=== PATIENT | female | born 1940 | race Caucasian/White ===

== ENCOUNTER 2021-04-08 13:44 | Outpatient (REF) | payer MEDICARE, OTHER, SELFPAY ==
--- NOTE | ~2021-04-08 | MM_ITS ---
EXAMINATION: MM SCREENING DIGITAL BREAST TOMOSYNTHESIS, BILATERAL CLINICAL INFORMATION: Screening. Asymptomatic. The lifetime risk of breast cancer based on the Tyrer-Cuzick Model is under 2%. COMPARISON: Mammography: 07/30/2019, 07/29/2018, 07/26/2017, 07/23/2016 TECHNIQUE: Digital breast tomosynthesis is performed in both the craniocaudal and mediolateral oblique views along with computer-aided detection (CAD). Synthesized 2D images are generated from the tomosynthesis. FINDINGS: There are scattered areas of fibroglandular density (ACR BI-RADS breast composition Category b). There are no significant masses, abnormal calcifications, or other abnormalities. There are scattered minor asymmetries similar to prior studies. No developing density. No significant changes. The axilla and skin contours are unremarkable. MM/MM tomosynthesis screening BI IMPRESSION: No mammographic evidence of malignancy. ASSESSMENT: BI-RADS 2: Benign RECOMMENDATION: Routine annual mammography screening. This patient's information was entered into a reminder system with a target due date for their next mammogram.
== END 2021-04-08 13:45 | disposition home or self-care (01) ==
LOC: HO.MAMMO 13:44
PROVIDERS: PCP Internal Medicine; Visit Provider Internal Medicine
DX: Z12.31 Encounter for screening mammogram for malignant neoplasm of breast (principal)
CPT/HCPCS: 77063; 77067

== ENCOUNTER 2022-04-12 10:26 | Outpatient (REF) | payer MEDICARE, OTHER, SELFPAY ==
--- NOTE | ~2022-04-12 | MM_ITS ---
EXAMINATION: MM SCREENING DIGITAL BREAST TOMOSYNTHESIS, BILATERAL CLINICAL INFORMATION: Screening. Asymptomatic. The lifetime risk of breast cancer based on the Tyrer-Cuzick Model is 1%. COMPARISON: Mammography: 04/08/2021, 07/30/2019, 07/29/2018 TECHNIQUE: Digital breast tomosynthesis is performed in both the craniocaudal and mediolateral oblique views along with computer-aided detection (CAD). Synthesized 2D images are generated from the tomosynthesis. FINDINGS: There are scattered areas of fibroglandular density (ACR BI-RADS breast composition Category b). Parenchymal pattern is similar to prior studies. There is no interval mass or architectural abnormality or developing density. No abnormal calcifications. Again, there are dermal lesions overlying the anterior upper left breast and anterior upper right breast. MM/MM tomosynthesis screening BI IMPRESSION: No mammographic evidence of malignancy. ASSESSMENT: BI-RADS 2: Benign RECOMMENDATION: Routine annual mammography screening. This patient's information was entered into a reminder system with a target due date for their next mammogram.
== END 2022-04-12 10:27 | disposition home or self-care (01) ==
LOC: HO.MAMMO 10:26
PROVIDERS: PCP Internal Medicine; Visit Provider Internal Medicine
DX: Z12.31 Encounter for screening mammogram for malignant neoplasm of breast (principal)
CPT/HCPCS: 77063; 77067

== ENCOUNTER 2023-04-26 14:21 | Outpatient (REF) | payer MEDICARE, OTHER, SELFPAY ==
--- NOTE | ~2023-04-26 | MM_ITS ---
EXAMINATION: MM SCREENING DIGITAL BREAST TOMOSYNTHESIS, BILATERAL CLINICAL INFORMATION: Screening. Asymptomatic. The lifetime risk of breast cancer based on the Tyrer-Cuzick Model is 0.8%. COMPARISON: Mammography: This study is compared with prior exams dating back to 2019. TECHNIQUE: Digital breast tomosynthesis is performed in both the craniocaudal and mediolateral oblique views along with computer-aided detection (CAD). Synthesized 2D images are generated from the tomosynthesis. FINDINGS: There are scattered areas of fibroglandular density (ACR BI-RADS breast composition Category b). There are no significant masses, abnormal calcifications, or other abnormalities. MM/MM tomosynthesis screening BI IMPRESSION: No mammographic evidence of malignancy. ASSESSMENT: BI-RADS BI-RADS 1 - Negative RECOMMENDATION: Routine annual mammography screening. 1 year F/U This examination should not preclude the clinical evaluation of a suspicious palpable abnormality. This patient's information was entered into a reminder system with a target due date for their next mammogram.
== END 2023-04-26 14:22 | disposition home or self-care (01) ==
LOC: HO.MAMMO 14:21
PROVIDERS: PCP Internal Medicine; Visit Provider Internal Medicine
DX: Z12.31 Encounter for screening mammogram for malignant neoplasm of breast (principal)
CPT/HCPCS: 77063; 77067

== ENCOUNTER → 2023-04-26 15:15 | Outpatient (BNV) | payer MEDICARE, OTHER, SELFPAY | PROVIDERS: PCP Internal Medicine; Visit Provider Radiology Diagnostic Radiology | DX: Z12.31 Encounter for screening mammogram for malignant neoplasm of breast (principal) | CPT/HCPCS: 77063; 77067 ==

== ENCOUNTER 2024-05-01 14:31 | Outpatient (REF) | payer MEDICARE, OTHER, SELFPAY | END 2024-05-01 14:32 | disposition home or self-care (01) | LOC: HO.MAMMO 14:31 | PROVIDERS: PCP Internal Medicine; Visit Provider Internal Medicine | DX: Z12.31 Encounter for screening mammogram for malignant neoplasm of breast (principal) | CPT/HCPCS: 77063; 77067 ==

== ENCOUNTER → 2024-05-01 15:00 | Outpatient (BNV) | payer MEDICARE, OTHER, SELFPAY | PROVIDERS: PCP Internal Medicine; Visit Provider Radiology Diagnostic Radiology | DX: Z12.31 Encounter for screening mammogram for malignant neoplasm of breast (principal) | CPT/HCPCS: 77063; 77067 ==

== ENCOUNTER 2024-06-15 14:05 | Inpatient (IN) | payer MEDICARE, OTHER, SELFPAY ==
--- NOTE | ~2024-06-15 | XR_ITS ---
EXAMINATION: XR HIP, LEFT CLINICAL INFORMATION: Left groin pain status post fall. COMPARISON: None available. TECHNIQUE: 3 radiographs of the left hip. FINDINGS: There is no fracture or dislocation. There are degenerative changes of the hips bilaterally. Sacroiliac joints and symphysis pubis are intact. Regional soft tissues are normal in appearance. XR/XR hip LT w PEL1V IMPRESSION: No fracture or dislocation. Degenerative changes of the hips bilaterally. Electronically signed by: Jesu Lord DO 06/15/2024 03:44 PM EDT
--- NOTE | ~2024-06-15 | FL_ITS ---
EXAMINATION: FLUOROSCOPY GUIDANCE FOR NEEDLE PLACEMENT CLINICAL INFORMATION: Left hip nail COMPARISON: None available. TECHNIQUE: Fluoroscopy in the OR FINDINGS: Fluoroscopy during left femoral fracture fixation FLUOROSCOPY TIME: 0.7 minutes DOSE AREA PRODUCT: 0.229 mGy-m2 (milligray-meter squared) FL/FL guidance in OR IMPRESSION: Fluoroscopy performed by the orthopedic Department. Please see operative report for additional information. Electronically signed by: Romelia Messina MD 06/16/2024 04:20 PM EDT
--- NOTE | ~2024-06-15 | CT_ITS ---
EXAMINATION: CT HEAD WITHOUT IV CONTRAST, CT CERVICAL SPINE WITHOUT IV CONTRAST INDICATION INFORMATION: injury, pain COMPARISON: None TECHNIQUE: Separate noncontrast CT examinations of the head and cervical spine were performed. Coronal and sagittal images were created for each examination at the technologist workstation. This CT examination was performed using dose optimization techniques as appropriate, variously including the following: *Automated exposure control *Adjustment of mA and/or kV according to patient size (this includes techniques or standardized protocols for targeted exams where dose is matched to indication/reason for exam; i.e. extremities or head) *Use of iterative reconstruction technique DLP: 761 mGy-cm FINDINGS: Head: Postsurgical changes from right-sided craniotomy with cystic encephalomalacia and peripheral calcification in posterior right temporal and occipital lobes. Mild dural thickening deep to the craniotomy is noted. No discrete extra-axial collection or hemorrhage. No acute osseous or soft tissue abnormality. The mastoid air cells and visualized portions of the paranasal sinuses are well aerated. There is no evidence of acute intracranial hemorrhage or territorial infarction. No abnormal mass effect or midline shift is seen. Simmons to white matter differentiation is well preserved. No extra-axial fluid collections are identified. There is no evidence of acute hydrocephalus. There is ex vacuo dilatation of the atrium and temporal horn of the right lateral ventricle. There is patchy hypodensity in the periventricular and deep white matter of the right greater than left cerebral hemisphere which may reflect sequela of chronic microvascular ischemia or treatment-related changes. Cervical spine: There is no evidence of acute cervical spine fracture. Vertebral bodies remain normal in height. Alignment is maintained. Mild to moderate multilevel cervical spondylosis. No pre- or paravertebral soft tissue abnormality is identified. Visualized portions of the lung apices are unremarkable. The thyroid gland is unremarkable. CT/CT cervical spine wo IV con IMPRESSION: 1. No acute intracranial abnormality. 2. Postsurgical changes in the posterior right temporal and occipital lobes status post craniotomy which is incompletely assessed in the absence of prior comparison imaging. 3. No cervical spine fracture or traumatic malalignment. Electronically signed by: Tato Florence MD 06/15/2024 09:41 PM EDT
--- NOTE | ~2024-06-15 | CT_ITS ---
EXAMINATION: CT HIP WITHOUT CONTRAST, LEFT CLINICAL INFORMATION: Fall. Pain. COMPARISON: Left hip June 15, 2024 TECHNIQUE: Multidetector volumetric imaging was obtained through the left hip without contrast material. Multiplanar reformatted images were submitted in coronal and sagittal planes. This CT examination was performed using dose optimization techniques as appropriate, variously including the following: *Automated exposure control *Adjustment of mA and/or kV according to patient size (this includes techniques or standardized protocols for targeted exams where dose is matched to indication/reason for exam; i.e. extremities or head) *Use of iterative reconstruction technique DLP: 173 mGy-cm FINDINGS: There is a comminuted displaced intratrochanteric fracture of the left hip. There is angulation of the fracture. Femoral head remains seated in the acetabulum. No fracture of the acetabulum, left hemipelvis. Marked diverticulosis of the sigmoid colon without acute change of the bowel. Bladder is unremarkable. CT/CT hip LT wo IV con IMPRESSION: Comminuted displaced intratrochanteric fracture of the left hip. Electronically signed by: Steven Grider MD 06/15/2024 09:19 PM EDT
--- NOTE | 2024-06-15 14:08 | ED_ITS ---
HPI - Fall General Chief Complaint: Extremity Injury, Lower Stated Complaint: L HIP PAIN Time Seen by Provider: 06/15/24 14:25 Source: patient and EMS Mode of arrival: EMS Limitations: no limitations History of Present Illness HPI Narrative: Patient is an 83-year-old female with past medical history of paroxysmal atrial fibrillation on amiodarone without reported anticoagulants, bladder cancer, brain tumors who presents to the emergency department for evaluation of left groin pain traumatic in nature. Reports that she was golfing today, while attempting to drive a ball she felt a sudden pop to the left hip, lost her balance falling down and landing on her buttock. She denies any head strike or loss of consciousness. Has no reports of headache dizziness lightheadedness vision changes, neck pain. She is endorsing pain to the left groin after the fall. Was unable to stand unassisted or bear weight. Has severe pain with any movement to the leg. No numbness tingling or cold sensation to the leg. She denies any preceding pain to the left groin. Related Data Allergies Allergy/AdvReac Type Severity Reaction Status Date / Time No Known Allergies Allergy Mild Unverified 06/15/24 14:23 Review of Systems 2 Review of Systems: Yes all other systems are reviewed and are negative [facility] Past Medical History Attestation statement: The following information was validated with the patient. Source: old records reviewed Social History Social History Smoked in Last 30 Days: No Use of substances other than those prescribed or required for medical reasons: No Advance Directives: Yes Advance Directives Information Provided: Yes Advance Directives on File: No Do you have a plan to hurt others: No Plan Physical Exam 2 Vital Signs: Vital Signs: Last Vital Signs Temp 98.3 F 06/15/24 19:27 Pulse 58 06/15/24 19:27 Resp 15 06/15/24 19:27 BP 128/56 L 06/15/24 19:27 Pulse Ox 99 06/15/24 19:27 O2 Del Method Room Air 06/15/24 19:27 BMI result Body Mass Index 18.8 Appearance: Alert.?Oriented to person, place and time. No acute distress.?Normal affect. Head: Normocephalic, atraumatic Eyes: Pupils equal, round and reactive to light.? ENT: Pharynx normal.?? Neck: Normal inspection.? Neck supple.??No midline cervical spine tenderness, step-offs, deformities CVS: Heart sounds normal. Normal heart rate and rhythm.? Pulses normal.?? Respiratory: No respiratory distress.? Lung sounds clear to auscultation bilaterally?? Abdomen: Soft and non-tender. Normoactive bowel sounds. Skin: Skin warm and dry.? Normal skin color.? Extremities: No lower extremity edema.? No calf ttp. No pain upon palpation to the lateral hip. Pain upon palpation of the left groin, no palpable masses or lumps. 2+ DP/PT pulse. No shortening. No rotation. ? Neuro: Moves all extremities spontaneously. Sensation intact bilaterally. CN II- XII intact. No focal neuro deficits. Course Reevaluation(s) Reevaluation #1: XR without evidence of acute fracture to the left hip/pelvis, degenerative changes are present. She is unable to move the leg without extreme pain, unable to ambulate, given age, plan to obtain CT to exclude occult fracture. Patient signed out to Rodo ANDERSON pending imaging and re-evaluation Time: 16:17 Reevaluation #2: Patient's left hip CT is still pending but upon my review, it is obviously broken. I consulted with the orthopedic team who agrees and recommends medical admission, NPO after midnight for possible surgery tomorrow. I spoke to the hospitalist team who agreed to admission. Time: 20:50 Medications Administered Discontinued Medications Generic Name Dose Route Start Last Admin Trade Name Rocq PRN Reason Stop Dose Admin Acetaminophen 975 mg 06/15/24 15:25 06/15/24 15:31 Acetaminophen 325 Mg Tablet PO 06/15/24 15:26 975 mg ONCE ONE Administration Morphine Sulfate 2 mg 06/15/24 17:53 06/15/24 18:05 Morphine Sulfate 2 Mg/Ml Cartridge IVPUSH 06/15/24 17:54 2 mg ONCE ONE Administration Protocol Morphine Sulfate 2 mg 06/15/24 19:53 06/15/24 20:04 Morphine Sulfate 2 Mg/Ml Cartridge IVPUSH 06/15/24 19:54 2 mg ONCE ONE Administration Protocol Ondansetron HCl 4 mg 06/15/24 17:53 06/15/24 18:05 Ondansetron Hcl 4 Mg/2 Ml Vial IVPUSH 06/15/24 17:54 4 mg ONCE ONE Administration Medical Decision Making Medical Decision Making MDM Narrative: Patient is an 83-year-old female with past medical history of atrial fibrillation not on anticoagulants, bladder cancer, brain cancer who presents emergency department for evaluation after a Mechanical fall landing on her buttock without head strike or loss of consciousness. Fall was witnessed of the affirm. No anticoagulants. No focal neurological deficits. Suspect less likely to have acute intracranial pathology, fracture subluxation. XR of the left hip and pelvis be obtained to evaluate for fracture versus strain of the groin. Extremity is neurovascularly intact distally. Declines analgesic at this time Differential Diagnosis Differential Diagnoses: The differential diagnosis associated with the presentation includes (See narrative above) Admission/Observation Consideration of admission/observation: Escalation of care including admission/observation considered Lab Data 06/15/24 16:36 06/15/24 16:36 Labs: Lab Results 06/15/24 Range/Units 16:36 WBC 8.0 (4.8-10.8) X10*3/uL RBC 3.40 L (4.20-5.50) X10*6/uL Hgb 11.0 L (12.0-16.0) g/dl Hct 32.7 L (37.0-47.0) % MCV 96.2 (80.0-98.0) fL MCH 32.4 (27.0-33.0) pg MCHC 33.6 (31.0-35.0) g/dl RDW 14.1 (11.0-16.0) % Plt Count 160 (160-400) X10*3/uL MPV 8.8 L (9.4-12.3) fL Immature Gran % (Auto) 0.5 H (0.0-0.4) % Neut % (Auto) 85.3 H (45-73) % Lymph % (Auto) 7.1 L (20-40) % Carver % (Auto) 5.6 (2-11) % Eos % (Auto) 1.1 (0-4) % Baso % (Auto) 0.4 (0-2) % Lymph # (Auto) 0.6 L (1.2-4.9) X10*3/uL Carver # (Auto) 0.5 (0.1-1.2) X10*3/uL Eos # (Auto) 0.1 (0.0-0.4) X10*3/uL Baso # (Auto) 0.0 (0.0-0.2) X10*3/uL Abs Immat Gran (auto) 0.04 H (0.00-0.03) X10*3/uL Absolute Neuts (auto) 6.8 (2.0-8.3) x10*3/uL Absolute Nucleated RBC 0.000 (0.0-0.012) X10*3/uL Nucleated RBC % (auto) 0.0 (0.0-0.2) /100WBC Sodium 141 (135-145) mmol/L Potassium 3.8 (3.3-5.1) mmol/L Chloride 112 H (96-108) mmol/L Carbon Dioxide 21 L (22-29) mmol/L Anion Gap 12 (12-20) BUN 20 H (9-16) mg/dL Creatinine 0.91 (0.5-1.4) mg/dL Estim Creat Clear Calc 39.2 Estimated GFR 59 Random Glucose 118 H (60-115) mg/dL Calcium 9.3 (8.4-10.2) mg/dL Total Bilirubin 0.4 (0.0-1.0) mg/dL AST 19 (5-31) U/L ALT 17 (0-31) U/L Alkaline Phosphatase 54 (39-117) U/L Total Protein 6.2 L (6.5-8.0) g/dL Albumin 3.6 (3.5-5.0) g/dL Independent Interpretation I performed an independent interpretation of an: Plain X-Ray (No acute fracture of the left hip) Radiology Impression Discussion of test interpretation with radiology: I have reviewed the radiologist's reading. Radiologist Impression: XR/XR hip LT w PEL1V IMPRESSION: No fracture or dislocation. Degenerative changes of the hips bilaterally. Independent Historian Clinical information obtained from an independent historian. History obtained from or confirmed by: EMS Tests considered The following testing was considered but not selected: Head CT, see narrative above Prescription Management I considered prescription management with: Pain Medication Discharge Plan Discharge Clinical Impression: Closed hip fracture Patient Disposition: Admitted As Inpatient Print Language: Latvian
[2024-06-15 14:17] VITALS: BP 140/64; BP 154/60; PULSE 60; PULSE 62; RESP 16; TEMP 36.6; O2SAT 97; O2SAT 98; BMI 18.8
[2024-06-15] MEDS: Acetaminophen 325 MG TABLET 975 MG PO (15:31)
[2024-06-15 16:39] LABS: MANUAL DIFF FLAG NO
[2024-06-15 16:55] LABS: Basophils Percent Auto 0.4 % (0-2); Eosinophils Absolute Auto 0.1 X10*3/uL (0.0-0.4); Eosinophils Percent Auto 1.1 % (0-4); Hematocrit 32.7 % (37.0-47.0); Imm Gran Abs Auto 0.04 X10*3/uL (0.00-0.03); Imm Gran Pct Auto 0.5 % (0.0-0.4); Lymphocytes Absolute Auto 0.6 X10*3/uL (1.2-4.9); Lymphocytes Percent Auto 7.1 % (20-40); Mean Corpuscular HGB Conc 33.6 g/dl (31.0-35.0); Mean Corpuscular Hemoglobin 32.4 pg (27.0-33.0); Mean Corpuscular Volume 96.2 fL (80.0-98.0); Mean Platelet Volume 8.8 fL (9.4-12.3); Monocytes Absolute Auto 0.5 X10*3/uL (0.1-1.2); Monocytes Percent Auto 5.6 % (2-11); Neutrophils Absolute Auto 6.8 x10*3/uL (2.0-8.3); Neutrophils Percent Auto 85.3 % (45-73); Platelet Count 160 X10*3/uL (160-400); Red Cell Distribution Width 14.1 % (11.0-16.0)
[2024-06-15 17:03] LABS: Alanine Aminotransferase 17 U/L (0-31); Albumin Level 3.6 g/dL (3.5-5.0); Alkaline Phosphatase 54 U/L (39-117); Anion Gap 12 (12-20); Aspartate Amino Transferase 19 U/L (5-31); Bilirubin Total 0.4 mg/dL (0.0-1.0); Blood Urea Nitrogen 20 mg/dL (9-16); Calcium 9.3 mg/dL (8.4-10.2); Carbon Dioxide 21 mmol/L (22-29); Chloride 112 mmol/L (96-108); Creatinine Clr Calc Pharmacy 39.2; Estimated Glomerular Filt Rate 59; Glucose Random 118 mg/dL (60-115); Potassium 3.8 mmol/L (3.3-5.1); Sodium 141 mmol/L (135-145); Total Protein 6.2 g/dL (6.5-8.0)
[2024-06-15] MEDS: Morphine Sulfate 2 MG/ML CARTRIDGE IVPUSH ×2 (18:05→20:04)
[2024-06-15] MEDS: ondansetron HCL 4 MG/2 ML VIAL IVPUSH (18:05)
[2024-06-15 19:27] VITALS: BP 128/56; PULSE 58; RESP 15; TEMP 36.8; O2SAT 99
--- NOTE | 2024-06-15 20:54 | PM.EVENT ---
Event Note Date of Service: 06/15/24 Event Note: Left intertrochanteric fx on CT scan -NPO -plan for operative fixation tomorrow morning Time Spent With Patient Time: Total time managing care of this patient today ____ minutes.
--- NOTE | 2024-06-15 21:23 | P.HPHOSP_ITS ---
History of Present Illness Date of Service: 06/15/24 Chief Complaint: Fall This is a 83-year-old female with pertinent history of brain tumor diagnosed 2 years ago status post surgery and radiation, currently on chemotherapy, paroxysmal atrial fibrillation not on anticoagulation who presents to the emergency department for evaluation after a fall. Patient states that during golf she missed her swing, spun around 360 and fell on her left hip. Has been having pain with movement of the left lower extremity since the fall. She is currently on chemotherapy for her brain tumor. No dizziness or lightheadedness prior to the fall. No chest pain or palpitations prior to the fall. No rhythmic jerking movement of extremities. No fever, chills, abdominal pain, changes in urinary or bowel habits. In the emergency department, imaging with comminuted displaced intertrochanteric fracture of the left hip. Review of Systems 2 Constitutional: Constitutional: Reports no additional constitutional complaints Cardiovascular: Cardiovascular: Reports no additional cardiovascular complaints Respiratory: Respiratory: Reports no additional respiratory complaints Gastrointestinal: Gastrointestinal: Reports no additional gastrointestinal complaints Genitourinary: Genitourinary: Reports no additional female genitourinary complaints Musculoskeletal: Musculoskeletal: Reports arthralgias and Reports joint swelling [facility] Medical History Paroxysmal atrial fibrillation Brain tumor Pertinent family history: Not significant due to age Social History Smoked in Last 30 Days: No Use of substances other than those prescribed or required for medical reasons: No Advance Directives: Yes Advance Directives Information Provided: Yes Advance Directives on File: No Do you have a plan to hurt others: No Plan Meds Allergies Allergy/AdvReac Type Severity Reaction Status Date / Time No Known Allergies Allergy Mild Unverified 06/15/24 14:23 Active Medications: Current Medications Cefazolin Sodium/Dextrose (Ancef) 2 gm in 50 mls @ 100 mls/hr IV PREOP ONE Stop: 06/16/24 08:29 Home Medications ?Medication ?Instructions ?Recorded ?Confirmed ?Last Taken ?Type amiodarone 100 mg tablet 50 mg PO DAILY 06/15/24 Unknown History Physical Exam 2 Vital Signs and Narrative: Vital Signs: Last Vital Signs Temp 98.3 F 06/15/24 19:27 Pulse 58 06/15/24 19:27 Resp 15 06/15/24 19:27 BP 128/56 L 06/15/24 19:27 Pulse Ox 99 06/15/24 19:27 O2 Del Method Room Air 06/15/24 19:27 BMI result Body Mass Index 18.8 Elderly female lying in bed in no distress Neck supple, no JVD Regular rate and rhythm, S1-S2 heard Regular breath sounds bilaterally, no wheezing or crackles appreciated Abdomen soft nontender, no guarding, no rigidity Patient is awake, alert and oriented to self, place, time and person ; no focal motor deficit Psych: Normal mood Limited left lower extremity movement due to pain Results Labs 06/15/24 16:36 06/15/24 16:36 Labs: Laboratory Results - last 24 hr 06/15/24 16:36 MCV 96.2 MCH 32.4 MCHC 33.6 RDW 14.1 Plt Count 160 MPV 8.8 L Immature Gran % (Auto) 0.5 H Neut % (Auto) 85.3 H Lymph % (Auto) 7.1 L Gilliam % (Auto) 5.6 Eos % (Auto) 1.1 Baso % (Auto) 0.4 Lymph # (Auto) 0.6 L Gilliam # (Auto) 0.5 Eos # (Auto) 0.1 Baso # (Auto) 0.0 Abs Immat Gran (auto) 0.04 H Absolute Neuts (auto) 6.8 Absolute Nucleated RBC 0.000 Nucleated RBC % (auto) 0.0 Anion Gap 12 Estim Creat Clear Calc 39.2 Estimated GFR 59 Random Glucose 118 H Calcium 9.3 Total Bilirubin 0.4 AST 19 ALT 17 Alkaline Phosphatase 54 Total Protein 6.2 L Albumin 3.6 Imaging Radiologist's Impressions: Impressions Hip/Pelvis X-Ray 06/15/24 14:15 IMPRESSION: No fracture or dislocation. Degenerative changes of the hips bilaterally. Electronically signed by: Jesu Lord DO 06/15/2024 03:44 PM EDT RP Hip CT 06/15/24 17:25 IMPRESSION: Comminuted displaced intratrochanteric fracture of the left hip. Electronically signed by: Steven Grider MD 06/15/2024 09:19 PM EDT RP Assessment and Plan (1) Closed hip fracture: Status: Acute Plan This is a 83-year-old female with pertinent history of brain tumor diagnosed 2 years ago status post surgery and radiation, currently on chemotherapy, paroxysmal atrial fibrillation not on anticoagulation who presents to the emergency department for evaluation after a fall. #. Left intertrochanteric fracture due to mechanical fall: Will admit patient with IV opioids p.r.n. for analgesia. Consulting orthopedic surgery, appreciate assistance. Will keep patient NPO. #. Preoperative risk: RCRI score is 0 #. Brain tumor: On chemotherapy #. Paroxysmal atrial fibrillation: Not on anticoagulation. Rate controlled in the ER. Continue amiodarone Med rec pending DVT prophylaxis: Mechanical DNR/DNI. Discussed with patient at bedside Admit as inpatient and will require two night minimum hospital stay for surgical management of intertrochanteric fracture, IV opiates (as above), which is not possible in a lesser acute setting. Specialist consult pending Quality Stroke Does the patient have a stroke diagnosis?: No VTE Prior VTE?: No VTE Risk Level:: Medical - moderate - high VTE Device Contraindication: N/A - Device Ordered VTE Drug Contraindication: Treatment Not Indicated
[2024-06-15 22:18] VITALS: BP 107/51; PULSE 68; RESP 17; TEMP 36.6; O2SAT 97
--- NOTE | 2024-06-15 22:47 | PC.NURSE ---
purewick placed for patients comfort. will monitor output.
--- NOTE | 2024-06-15 22:52 | PHA.MEDREC ---
Addendum entered by Piero Brian RPh 06/15/24 23:07: MED REC CHECKED BY [facility] Original Note: Pharmacy Consult ? Medication Reconciliation Pharmacy has completed the medication reconciliation. Confirmed medications with patient. Patient brought in Pill Box with Chemo medication in them, Temozolomide 5mg 2@Bedtime and Temozolomide 20mg 3@bedtime. She takes with her chemo meds an Ondansetron 4mg tab. She last took her medication this morning she never took her night medications.
[2024-06-15 23:18] VITALS: BP 137/83; PULSE 68; RESP 18; TEMP 37.1; O2SAT 98
[2024-06-15 23:25] VITALS: BMI 17.8
[2024-06-16] VITALS (10 sets, daily range): BP systolic 101–117; BP diastolic 38–57; PULSE 60–71; RESP 15–20; TEMP 36.2–37.6; O2SAT 92–98
[2024-06-16] MEDS: Morphine Sulfate 4 MG/ML CARTRIDGE IVPUSH (00:02)
[2024-06-16] MEDS: 0.9 % Sodium Chloride Flush 3 ML SYRINGE IVFLUSH ×3 (00:05→20:41)
[2024-06-16 06:30] LABS: MANUAL DIFF FLAG NO
[2024-06-16 06:39] LABS: Basophils Percent Auto 0.2 % (0-2); Eosinophils Absolute Auto 0.1 X10*3/uL (0.0-0.4); Eosinophils Percent Auto 2.3 % (0-4); Hematocrit 32.5 % (37.0-47.0); Hemoglobin 10.7 g/dl (12.0-16.0); Imm Gran Abs Auto 0.02 X10*3/uL (0.00-0.03); Imm Gran Pct Auto 0.4 % (0.0-0.4); Lymphocytes Absolute Auto 0.6 X10*3/uL (1.2-4.9); Lymphocytes Percent Auto 11.7 % (20-40); Mean Corpuscular HGB Conc 32.9 g/dl (31.0-35.0); Mean Corpuscular Hemoglobin 32.1 pg (27.0-33.0); Mean Corpuscular Volume 97.6 fL (80.0-98.0); Mean Platelet Volume 8.9 fL (9.4-12.3); Monocytes Absolute Auto 0.8 X10*3/uL (0.1-1.2); Monocytes Percent Auto 16.1 % (2-11); Neutrophils Absolute Auto 3.3 x10*3/uL (2.0-8.3); Neutrophils Percent Auto 69.3 % (45-73); Platelet Count 157 X10*3/uL (160-400); Red Blood Count 3.33 X10*6/uL (4.20-5.50); Red Cell Distribution Width 14.1 % (11.0-16.0); White Blood Count 4.8 X10*3/uL (4.8-10.8)
[2024-06-16 06:58] LABS: Anion Gap 12 (12-20); Blood Urea Nitrogen 20 mg/dL (9-16); Carbon Dioxide 23 mmol/L (22-29); Chloride 111 mmol/L (96-108); Creatinine Clr Calc Pharmacy 34.8; Estimated Glomerular Filt Rate 55; Glucose Random 106 mg/dL (60-115); Potassium 4.3 mmol/L (3.3-5.1); Sodium 142 mmol/L (135-145)
--- NOTE | 2024-06-16 08:04 | HO.ANESPROP2 ---
HPI - Anesthesia Eval Consult details Narrative: left tumor fracture PMFSH Active Problems Active Problems: All Active Problems Paroxysmal atrial fibrillation (Acute) Brain tumor (Acute) Closed hip fracture (Acute) Past Medical History Medical History Paroxysmal atrial fibrillation Brain tumor Family History Family history of problems with anesthesia: No Surgical History History of Problems with Anesthesia: No Social History Social History Household Members: Children Housing: House Do you presently have visiting nurse or other home services: No Patient Tobacco Use Status: Never used Tobacco Advance Directives Date on File: 06/15/24 Meds Allergies Allergy/AdvReac Type Severity Reaction Status Date / Time No Known Allergies Allergy Mild Unverified 06/15/24 14:23 Active Medications: Current Medications Acetaminophen (Acetaminophen 325 Mg Tablet) 650 mg PO Q6H PRN PRN Reason: Pain, Mild (Pain Scale 1-3), fever or headache Calcium Carbonate (Calcium Carbonate 750 Mg Tab.Chew) 750 mg PO Q4H PRN PRN Reason: Heartburn Cefazolin Sodium/Dextrose (Ancef) 2 gm in 50 mls @ 100 mls/hr IV PREOP ONE Stop: 06/16/24 08:29 Magnesium Hydroxide (Milk Of Magnesia 30 Ml Oral.Susp) 30 ml PO DAILY PRN PRN Reason: Constipation Melatonin (Melatonin 3 Mg Tablet) 6 mg PO BEDTIME PRN PRN Reason: Insomnia Morphine Sulfate (Morphine Sulfate 4 Mg/Ml Cartridge) 4 mg IVPUSH Q4H PRN; Protocol PRN Reason: Pain, Severe (Pain Scale 7-10) Last Admin: 06/16/24 00:02 Dose: 4 mg Pat Own Med ( Temozolomide 5 Mg Capsule) 10 mg PO BEDTIME [facility] Last Admin: 06/15/24 23:18 Dose: 10 mg Pat Own Med ( Temozolomide 20 Mg Capsule) 60 mg PO BEDTIME [facility] Last Admin: 06/15/24 23:19 Dose: 60 mg Ondansetron HCl (Ondansetron Hcl 4 Mg/2 Ml Vial) 4 mg IVPUSH Q8H PRN PRN Reason: Nausea and Vomiting Sodium Chloride (0.9 % Sodium Chloride Flush 3 Ml Syringe) 3 ml IVFLUSH QSHIFT [facility] Last Admin: 06/16/24 00:05 Dose: 3 ml Home Medications ?Medication ?Instructions ?Recorded ?Confirmed ?Last Taken ?Type amiodarone 100 mg tablet 50 mg PO DAILY 06/15/24 06/15/24 06/15/24 07:00 History fkfnikzv-kmeh-[id number] 8 mg-folic 400 1 tab PO DAILY 06/15/24 06/15/24 06/15/24 07:00 History mcg-K 50 mcg-lutein 300 mcg tablet (Centrum Silver Women) ondansetron 4 mg disintegrating 4 mg PO BEDTIME 06/15/24 06/15/24 06/15/24 07:00 History tablet temozolomide 20 mg capsule 60 mg PO BEDTIME 06/15/24 06/15/24 06/14/24 History temozolomide 5 mg capsule 10 mg PO BEDTIME 06/15/24 06/15/24 06/15/24 07:00 History Exam Height,Weight and Vital Signs: Height 5 ft 5 in Weight 48.5 kg Last Vital Signs Temp 99.6 F 06/16/24 07:54 Pulse 60 06/16/24 07:54 Resp 16 06/16/24 07:54 BP 116/57 L 06/16/24 07:54 Pulse Ox 94 06/16/24 07:54 O2 Del Method Room Air 06/16/24 07:54 Pertinent Lab Results Pertinent Lab Results: Laboratory Tests 06/15/24 06/16/24 16:36 05:41 WBC 8.0 4.8 RBC 3.40 L 3.33 L Hgb 11.0 L 10.7 L Hct 32.7 L 32.5 L MCV 96.2 97.6 MCH 32.4 32.1 MCHC 33.6 32.9 RDW 14.1 14.1 Plt Count 160 157 L MPV 8.8 L 8.9 L Immature Gran % (Auto) 0.5 H 0.4 Neut % (Auto) 85.3 H 69.3 Lymph % (Auto) 7.1 L 11.7 L [place] % (Auto) 5.6 16.1 H Eos % (Auto) 1.1 2.3 Baso % (Auto) 0.4 0.2 Lymph # (Auto) 0.6 L 0.6 L [place] # (Auto) 0.5 0.8 Eos # (Auto) 0.1 0.1 Baso # (Auto) 0.0 0.0 Abs Immat Gran (auto) 0.04 H 0.02 Absolute Neuts (auto) 6.8 3.3 Absolute Nucleated RBC 0.000 0.000 Nucleated RBC % (auto) 0.0 0.0 Sodium 141 142 Potassium 3.8 4.3 Chloride 112 H 111 H Carbon Dioxide 21 L 23 Anion Gap 12 12 BUN 20 H 20 H Creatinine 0.91 0.97 Estim Creat Clear Calc 39.2 34.8 Estimated GFR 59 55 Random Glucose 118 H 106 Calcium 9.3 9.0 Total Bilirubin 0.4 AST 19 ALT 17 Alkaline Phosphatase 54 Total Protein 6.2 L Albumin 3.6 Airway Mallampati Class: I TM Dist: >3cm Neck ROM: Full Loose/Missing/Broken Teeth: No Heart: RRR Lungs: CTA Assessment and Plan Assessment Anesthesia Assessment: Anesthesia Plan Discussed and Chart Reviewed Final Anesthetic Review Family History of Problems with Anesthesia: No History of Problems with Anesthesia: No NPO: Yes ASA Class: III Final Preanesthetic Review: No Changes in Pt Med Stat, Meds/Allgs Chart Reviewed, Consent Obtained/Reviewed, Anes Risks/Benef Reviewed and DNR Form (If Appl.) (DNR suspended) Patient Risk: Intermediate Procedure Risk: Intermediate Anesthetic Plan Anesthetic Plan: GA Disposition: Standard PACU
--- NOTE | 2024-06-16 08:16 | P.CONOP_ITS ---
History of Present Illness HPI Consult date: 06/16/24 Chief complaint: left hip pain Narrative: Ms. Perez is an 83-year-old female who presents with complaints of left hip pain after falling while playing golf. The patient states that she slipped and fell onto her left side. She denies any shortness of breath, chest pain or dizziness prior to her fall. She denies any other injuries. [facility] Past Medical History Medical History Paroxysmal atrial fibrillation Brain tumor Patient : No Social History Social History Household Members: Children Housing: House Do you presently have visiting nurse or other home services: No Patient Tobacco Use Status: Never used Tobacco Advance Directives Date on File: 06/15/24 Meds Allergies Allergy/AdvReac Type Severity Reaction Status Date / Time No Known Allergies Allergy Mild Unverified 06/15/24 14:23 Active Medications: Current Medications Acetaminophen (Acetaminophen 325 Mg Tablet) 650 mg PO Q6H PRN PRN Reason: Pain, Mild (Pain Scale 1-3), fever or headache Calcium Carbonate (Calcium Carbonate 750 Mg Tab.Chew) 750 mg PO Q4H PRN PRN Reason: Heartburn Fentanyl (Fentanyl Citrate/Pf 100 Mcg/2 Ml Vial) 25 mcg IVPUSH Q5M PRN PRN Reason: Pain, Moderate to Severe (Pain Scale 4-10) Stop: 06/16/24 14:06 Hydromorphone HCl (Hydromorphone Hcl 0.5 Mg/0.5 Ml Syringe) 0.5 mg IVPUSH Q5M PRN PRN Reason: Pain, Severe (Pain Scale 7-10) Stop: 06/16/24 14:06 Cefazolin Sodium/Dextrose (Ancef) 2 gm in 50 mls @ 100 mls/hr IV PREOP ONE Stop: 06/16/24 08:29 Magnesium Hydroxide (Milk Of Magnesia 30 Ml Oral.Susp) 30 ml PO DAILY PRN PRN Reason: Constipation Melatonin (Melatonin 3 Mg Tablet) 6 mg PO BEDTIME PRN PRN Reason: Insomnia Morphine Sulfate (Morphine Sulfate 4 Mg/Ml Cartridge) 4 mg IVPUSH Q4H PRN; Protocol PRN Reason: Pain, Severe (Pain Scale 7-10) Last Admin: 06/16/24 00:02 Dose: 4 mg Pat Own Med ( Temozolomide 5 Mg Capsule) 10 mg PO BEDTIME [facility] Last Admin: 06/15/24 23:18 Dose: 10 mg Pat Own Med ( Temozolomide 20 Mg Capsule) 60 mg PO BEDTIME [facility] Last Admin: 06/15/24 23:19 Dose: 60 mg Ondansetron HCl (Ondansetron Hcl 4 Mg/2 Ml Vial) 4 mg IVPUSH Q8H PRN PRN Reason: Nausea and Vomiting Oxycodone HCl (Oxycodone Hcl Immed Release 5 Mg Tablet) 5 mg PO ONCE PRN PRN Reason: Pain, Moderate(Pain Scale 4-6) if no IV Access Stop: 06/16/24 14:06 Sodium Chloride (0.9 % Sodium Chloride Flush 3 Ml Syringe) 3 ml IVFLUSH [facility] Last Admin: 06/16/24 00:05 Dose: 3 ml Home Medications ?Medication ?Instructions ?Recorded ?Confirmed ?Last Taken ?Type amiodarone 100 mg tablet 50 mg PO DAILY 06/15/24 06/15/24 06/15/24 07:00 History sprlzwub-phxn-zgfl 8 mg-folic 400 1 tab PO DAILY 06/15/24 06/15/24 06/15/24 07:00 History mcg-K 50 mcg-lutein 300 mcg tablet (Centrum Silver Women) ondansetron 4 mg disintegrating 4 mg PO BEDTIME 06/15/24 06/15/24 06/15/24 07:00 History tablet temozolomide 20 mg capsule 60 mg PO BEDTIME 06/15/24 06/15/24 06/14/24 History temozolomide 5 mg capsule 10 mg PO BEDTIME 06/15/24 06/15/24 06/15/24 07:00 History Physical Exam 2 Vital Signs: Vital Signs: Last Vital Signs Temp 99.6 F 06/16/24 07:54 Pulse 60 06/16/24 07:54 Resp 16 06/16/24 07:54 BP 116/57 L 06/16/24 07:54 Pulse Ox 94 06/16/24 07:54 O2 Del Method Room Air 06/16/24 07:54 BMI result Body Mass Index 17.8 Const: Other: Well-nourished well-developed very friendly female awake alert and oriented x3 in no acute distress Extrem: Other: Left hip examination shows pain with range of motion, tenderness over her proximal femur, no overlying skin lesions Results Labs 06/16/24 05:41 06/16/24 05:41 Labs: Abnormal lab results 06/15/24 06/16/24 Range/Units 16:36 05:41 RBC 3.40 L 3.33 L (4.20-5.50) X10*6/uL Hgb 11.0 L 10.7 L (12.0-16.0) g/dl Hct 32.7 L 32.5 L (37.0-47.0) % Plt Count 157 L (160-400) X10*3/uL MPV 8.8 L 8.9 L (9.4-12.3) fL Immature Gran % (Auto) 0.5 H (0.0-0.4) % Neut % (Auto) 85.3 H (45-73) % Lymph % (Auto) 7.1 L 11.7 L (20-40) % [place] % (Auto) 16.1 H (2-11) % Lymph # (Auto) 0.6 L 0.6 L (1.2-4.9) X10*3/uL Abs Immat Gran (auto) 0.04 H (0.00-0.03) X10*3/uL Chloride 112 H 111 H (96-108) mmol/L Carbon Dioxide 21 L (22-29) mmol/L BUN 20 H 20 H (9-16) mg/dL Random Glucose 118 H (60-115) mg/dL Total Protein 6.2 L (6.5-8.0) g/dL H & H 06/15/24 06/16/24 Range/Units 16:36 05:41 Hgb 11.0 L 10.7 L (12.0-16.0) g/dl Hct 32.7 L 32.5 L (37.0-47.0) % All other labs normal. Diagnostic results Hip x-ray: other (X-rays of the patient's left hip show an intertrochanteric fracture) Assessment and Plan (1) Intertrochanteric fracture of left hip: Status: Acute Plan Ms. Perez is an 83-year-old female who presents with left hip pain due to a left hip intertrochanteric fracture. I had a lengthy discussion with the patient regarding the treatment options. The risks and benefits of left hip gamma nail placement surgery were discussed at length with the patient. I did recommend surgery in order to allow the patient to be mobilized. The patient wishes to proceed with surgery. Surgery is scheduled for later this morning. The patient is stable at present. Thank you very much for asking me to see this very friendly patient. Procedures Date of Service Date of Service: 06/16/24
--- NOTE | 2024-06-16 10:23 | P.BOP_ITS ---
Brief Operative Note Date of Service: 06/16/24 Pre-op diagnosis: Left hip intertrochanteric fracture Post-op diagnosis: same Procedure: Open reduction and internal fixation of left hip intertrochanteric fracture with placement of a short gamma nail Implants: [place] short gamma nail measuring 180 mm in length by 11 mm in diameter with a 125 degree neck-shaft angle, lag screw measuring 90 mm in length, a standard set screw, distal locking bolt measuring 35 mm in length Surgeon: Kendall Galeana MD Anesthesia: GETA Was an Developmental Services Worker used for this Procedure?: No Estimated blood loss (mL): 50 Pathology: none sent Condition: stable Disposition: PACU
--- NOTE | 2024-06-16 10:28 | P.OP_ITS ---
Operative Note Operative Note Date of Service: 06/16/24 Narrative: After the patient was identified as Lucia Perez and her left hip was initialed by myself they were brought to the operating room where general anesthesia was induced by the anesthesiologist in routine fashion. The patient was given 2 g of IV Ancef for infection prophylaxis. The patient was then gently transferred from the hospital bed onto the fracture table. The patient's right lower extremity was placed into the well leg horne. The patient's left lower extremity was placed in gentle in-line traction with their patella parallel to the floor. All bony prominences were well padded. C-arm AP and lateral radi ographs were taken to confirm good fracture reduction. The patient's left hip region was prepped and draped in sterile fashion. A formal time-out was completed. A #10 scalpel blade was used to make a 5 cm incision just proximal to the tip of the greater trochanter. A curved cannulated awl was introduced into the proximal femur in routine fashion. A ball-tipped guidewire was then placed through the cannula and into the femoral canal. The awl was removed. Reaming was begun with a 9 mm reamer. Reaming was increased incrementally up to a size 13 reamer distally. The proximal canal was reamed with a 15.5 mm reamer. The gamma nail measuring 11 mm in diameter by 180 mm in length was passed over the guidewire. Good fracture reduction and nail positioning were confirmed using C-arm AP and lateral radiographs. A 2 cm incision was then made where the lag screw trocar met the patient's lateral thigh. The subcutaneous tissues and fascia matt were split down to the lateral cortex of the femur using a hemostat. The lag screw trocar was passed down to the lateral cortex of the femur. A threaded guidewire was then placed into the inferior aspect of the femoral head on the AP x-ray and the center of the femoral head on the lateral x-ray. The guidewire measured 95 mm in length. Reaming was then performed over the guidewire to a depth of 95 mm. The lag screw measuring 95 mm in length was then placed over the guidewire. At this point the lag screw was seen to be protruding significantly outside of the lateral cortex of the femur. Thus, the 95 mm lag screw was switched to a 90 mm lag screw. The guidewire was removed. The set screw was then placed into the nail and tightened fully. It was then turned 1/4 of a turn counter-clockwise to allow for fracture compression. A 2 cm incision was then made where the distal locking bolt trocar met the lateral aspect of the patient's thigh. The subcutaneous tissues and the fascia matt were split down to the lateral cortex of the femur. The locking bolt hole was drilled in routine fashion. The drill bit measured 35 mm in length. The distal locking bolt measuring 35 mm in length was put into place without difficulty. Final AP and lateral radiographs showed good fracture reduction and hardware positioning. All 3 wounds were irrigated with copious amounts of normal saline solution. The distal 2 wounds were closed with 2-0 Vicryl and skin valeria. The proximal wound was once again irrigated. The fascia matt was closed with 0 Vicryl [id number] interrupted suture. The wound was once again irrigated. The subcutaneous tissues were closed with 2-0 Vicryl interrupted suture. The skin was closed with skin valeria. Dry sterile dressing was placed over all incisions. The patient was gently transferred from the fracture table onto their hospital bed. The patient was awoken and extubated in the operating room. The patient was transferred to the recovery room in stable condition.
--- NOTE | 2024-06-16 11:01 | HO.PM.IMPN ---
Subjective Subjective Date of Service: 06/16/24 Interval History: no complaints Physical Exam Vital Signs: Vital Signs: Last Vital Signs Temp 97.5 F 06/16/24 10:51 Pulse 68 06/16/24 10:51 Resp 16 06/16/24 10:51 BP 117/43 L 06/16/24 10:51 Pulse Ox 98 06/16/24 10:51 O2 Del Method Nasal Cannula 06/16/24 10:51 O2 Flow Rate 2 06/16/24 10:51 BMI result Body Mass Index 17.8 General: AO X 3, no acute distress Resp: CTA bilateral, no accessory muscles used CVS: S1,S2,RRR GI: soft, non tender, non distended Neuro: motor grossly intact, alert Psych: appropriate affect, appropriate insight Objective Data Active Medications Acetaminophen (Acetaminophen 325 Mg Tablet) 650 mg PO Q6H PRN PRN Reason: Pain, Mild (Pain Scale 1-3), fever or headache Calcium Carbonate (Calcium Carbonate 750 Mg Tab.Chew) 750 mg PO Q4H PRN PRN Reason: Heartburn Fentanyl (Fentanyl Citrate/Pf 100 Mcg/2 Ml Vial) 25 mcg IVPUSH Q5M PRN PRN Reason: Pain, Moderate to Severe (Pain Scale 4-10) Stop: 06/16/24 14:06 Hydromorphone HCl (Hydromorphone Hcl 0.5 Mg/0.5 Ml Syringe) 0.5 mg IVPUSH Q5M PRN PRN Reason: Pain, Severe (Pain Scale 7-10) Stop: 06/16/24 14:06 Cefazolin Sodium/Dextrose (Ancef) 2 gm in 50 mls @ 100 mls/hr IV Q8H [facility] Stop: 06/17/24 16:59 Magnesium Hydroxide (Milk Of Magnesia 30 Ml Oral.Susp) 30 ml PO DAILY PRN PRN Reason: Constipation Melatonin (Melatonin 3 Mg Tablet) 6 mg PO BEDTIME PRN PRN Reason: Insomnia Morphine Sulfate (Morphine Sulfate 4 Mg/Ml Cartridge) 4 mg IVPUSH Q4H PRN; Protocol PRN Reason: Pain, Severe (Pain Scale 7-10) Last Admin: 06/16/24 00:02 Dose: 4 mg Documented By: CINTHIA Poe Own Med ( Temozolomide 5 Mg Capsule) 10 mg PO BEDTIME [facility] Last Admin: 06/15/24 23:18 Dose: 10 mg Documented By: CINTHIA Pat Own Med ( Temozolomide 20 Mg Capsule) 60 mg PO BEDTIME [facility] Last Admin: 06/15/24 23:19 Dose: 60 mg Documented By: CINTHIA Ondansetron HCl (Ondansetron Hcl 4 Mg/2 Ml Vial) 4 mg IVPUSH Q8H PRN PRN Reason: Nausea and Vomiting Oxycodone HCl (Oxycodone Hcl Immed Release 5 Mg Tablet) 5 mg PO ONCE PRN PRN Reason: Pain, Moderate(Pain Scale 4-6) if no IV Access Stop: 06/16/24 14:06 Sodium Chloride (0.9 % Sodium Chloride Flush 3 Ml Syringe) 3 ml IVFLUSH QSHIFT [facility] Last Admin: 06/16/24 08:24 Dose: Not Given Documented By: EVELIN Non-Admin Reason: Off Unit: Surgery Labs 06/16/24 05:41 06/16/24 05:41 Labs: Laboratory Results - last 24 hr 06/15/24 06/16/24 16:36 05:41 MCV 96.2 97.6 MCH 32.4 32.1 MCHC 33.6 32.9 RDW 14.1 14.1 Plt Count 160 157 L MPV 8.8 L 8.9 L Immature Gran % (Auto) 0.5 H 0.4 Neut % (Auto) 85.3 H 69.3 Lymph % (Auto) 7.1 L 11.7 L [place] % (Auto) 5.6 16.1 H Eos % (Auto) 1.1 2.3 Baso % (Auto) 0.4 0.2 Lymph # (Auto) 0.6 L 0.6 L [place] # (Auto) 0.5 0.8 Eos # (Auto) 0.1 0.1 Baso # (Auto) 0.0 0.0 Abs Immat Gran (auto) 0.04 H 0.02 Absolute Neuts (auto) 6.8 3.3 Absolute Nucleated RBC 0.000 0.000 Nucleated RBC % (auto) 0.0 0.0 Anion Gap 12 12 Estim Creat Clear Calc 39.2 34.8 Estimated GFR 59 55 Random Glucose 118 H 106 Calcium 9.3 9.0 Total Bilirubin 0.4 AST 19 ALT 17 Alkaline Phosphatase 54 Total Protein 6.2 L Albumin 3.6 Assessment and Plan (1) Intertrochanteric fracture of left hip: Status: Acute Plan 83-year-old female with 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 Left intertrochanteric fracture due to mechanical fall POD 0 Brain tumor On chemotherapy Paroxysmal atrial fibrillation Not on anticoagulation Continue amiodarone dvt prophylaxis -= per ortho dnr/dni reason for continued hospitalization:surgery today Quality Stroke Does the patient have a stroke diagnosis?: No VTE Prior VTE?: No VTE Risk Level:: Medical - moderate - high VTE Device Contraindication: N/A - Device Ordered VTE Drug Contraindication: Treatment Not Indicated
[2024-06-16] MEDS: Acetaminophen 325 MG TABLET 650 MG PO (12:37)
--- NOTE | 2024-06-16 16:25 | MHC.CM.PN ---
PT REPORTS SHE LIVES ALONE AND HER SON LIVES UPSTAIRS SHE IS INDEPENDENT WITH CARE AT [facility] AND A LIFE ALERT SYSTEM SHE SAYS SHE HAS A HCP NAMING HER SON HER AGENT PCP: MAMADOU SANTIAGO DELIVERED DCP: PENDING PT EVAL LIKELY STR, PT WILL PROVIDE A LIST OF PREFERENCES TOMORROW
[2024-06-16] MEDS: ceFAZolin Sodium/Dextrose,Iso 2 GM/50 ML PIGGYBACK IV (17:37)
[2024-06-16] MEDS: ondansetron HCL 4 MG/2 ML VIAL IVPUSH (20:38)
[2024-06-17] MEDS: ceFAZolin Sodium/Dextrose,Iso 2 GM/50 ML PIGGYBACK IV ×2 (00:53→09:30)
[2024-06-17 03:10] VITALS: BP 101/58; PULSE 68; RESP 16; TEMP 36.5; O2SAT 92
[2024-06-17 06:58] LABS: Anion Gap 10 (12-20); Blood Urea Nitrogen 18 mg/dL (9-16); Calcium 8.9 mg/dL (8.4-10.2); Carbon Dioxide 26 mmol/L (22-29); Chloride 110 mmol/L (96-108); Creatinine Clr Calc Pharmacy 32.5; Estimated Glomerular Filt Rate 51; Glucose Fasting 102 mg/dL (60-99); Potassium 4.3 mmol/L (3.3-5.1); Sodium 142 mmol/L (135-145)
[2024-06-17 07:22] LABS: Hematocrit 28.7 % (37.0-47.0); Hemoglobin 9.6 g/dl (12.0-16.0); Mean Corpuscular HGB Conc 33.4 g/dl (31.0-35.0); Mean Corpuscular Hemoglobin 32.7 pg (27.0-33.0); Mean Corpuscular Volume 97.6 fL (80.0-98.0); Mean Platelet Volume 9.3 fL (9.4-12.3); Platelet Count 141 X10*3/uL (160-400); Red Blood Count 2.94 X10*6/uL (4.20-5.50); Red Cell Distribution Width 14.3 % (11.0-16.0); White Blood Count 5.3 X10*3/uL (4.8-10.8)
[2024-06-17 07:52] VITALS: BP 107/51; PULSE 68; RESP 16; TEMP 37.2; O2SAT 93
--- NOTE | 2024-06-17 09:00 | HO.PM.IMPN ---
Subjective Subjective Date of Service: 06/17/24 Interval History: no complaints Physical Exam Vital Signs: Vital Signs: Last Vital Signs Temp 98.9 F 06/17/24 07:52 Pulse 68 06/17/24 07:52 Resp 16 06/17/24 07:52 BP 107/51 L 06/17/24 07:52 Pulse Ox 93 06/17/24 07:52 O2 Del Method Room Air 06/17/24 07:52 O2 Flow Rate 2 06/16/24 10:51 BMI result Body Mass Index 17.8 General: AO X 3, no acute distress Resp: CTA bilateral, no accessory muscles used CVS: S1,S2,RRR GI: soft, non tender, non distended Neuro: motor grossly intact, alert Psych: appropriate affect, appropriate insight Objective Data Active Medications Acetaminophen (Acetaminophen 325 Mg Tablet) 650 mg PO Q6H PRN PRN Reason: Pain, Mild (Pain Scale 1-3), fever or headache Last Admin: 06/16/24 12:37 Dose: 650 mg Documented By: EVELIN Amiodarone HCl (Amiodarone Hcl 200 Mg Tablet) 50 mg PO DAILY [facility] Calcium Carbonate (Calcium Carbonate 750 Mg Tab.Chew) 750 mg PO Q4H PRN PRN Reason: Heartburn Enoxaparin Sodium (Enoxaparin Sodium 40 Mg/0.4 Ml Syringe) 40 mg SUBCUT Q24H [facility] Cefazolin Sodium/Dextrose (Ancef) 2 gm in 50 mls @ 100 mls/hr IV Q8H [facility] Stop: 06/17/24 16:59 Last Infusion: 06/17/24 01:23 Dose: Infused Documented By: CINTHIA Magnesium Hydroxide (Milk Of Magnesia 30 Ml Oral.Susp) 30 ml PO DAILY PRN PRN Reason: Constipation Melatonin (Melatonin 3 Mg Tablet) 6 mg PO BEDTIME PRN PRN Reason: Insomnia Morphine Sulfate (Morphine Sulfate 4 Mg/Ml Cartridge) 4 mg IVPUSH Q4H PRN; Protocol PRN Reason: Pain, Severe (Pain Scale 7-10) Last Admin: 06/16/24 00:02 Dose: 4 mg Documented By: CINTHIA Pat Own Med ( Temozolomide 5 Mg Capsule) 10 mg PO BEDTIME [facility] Last Admin: 06/15/24 23:18 Dose: 10 mg Documented By: CINTHIA Pat Own Med ( Temozolomide 20 Mg Capsule) 60 mg PO BEDTIME [facility] Last Admin: 06/15/24 23:19 Dose: 60 mg Documented By: CINTHIA Ondansetron HCl (Ondansetron Hcl 4 Mg/2 Ml Vial) 4 mg IVPUSH Q8H PRN PRN Reason: Nausea and Vomiting Last Admin: 06/16/24 20:38 Dose: 4 mg Documented By: CINTHIA Sodium Chloride (0.9 % Sodium Chloride Flush 3 Ml Syringe) 3 ml IVFLUSH QSHIFT [facility] Last Admin: 06/16/24 20:41 Dose: 3 ml Documented By: CINTHIA Labs 06/17/24 05:42 06/17/24 05:41 Labs: Laboratory Results - last 24 hr 06/17/24 06/17/24 05:41 05:42 MCV 97.6 MCH 32.7 MCHC 33.4 RDW 14.3 Plt Count 141 L MPV 9.3 L Absolute Nucleated RBC 0.000 Nucleated RBC % (auto) 0.0 Anion Gap 10 L Estim Creat Clear Calc 32.5 Estimated GFR 51 Fasting Glucose 102 H Calcium 8.9 Assessment and Plan (1) Intertrochanteric fracture of left hip: Status: Acute Plan 83-year-old female with 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 Left intertrochanteric fracture due to mechanical fall POD 1 PT recommending STR Brain tumor On chemotherapy Paroxysmal atrial fibrillation Not on anticoagulation Continue amiodarone dvt prophylaxis - lovenox dnr/dni reason for continued hospitalization: postop monitoring Quality Stroke Does the patient have a stroke diagnosis?: No VTE Prior VTE?: No VTE Risk Level:: Medical - moderate - high VTE Device Contraindication: N/A - Device Ordered VTE Drug Contraindication: Treatment Not Indicated
[2024-06-17] MEDS: Amiodarone HCL 200 MG TABLET 50 MG PO (09:27)
[2024-06-17] MEDS: Enoxaparin Sodium 40 MG/0.4 ML SYRINGE SUBCUT (09:27)
[2024-06-17] MEDS: 0.9 % Sodium Chloride Flush 3 ML SYRINGE IVFLUSH ×3 (09:27→19:03)
[2024-06-17] MEDS: Acetaminophen 325 MG TABLET 650 MG PO (10:43)
[2024-06-17 12:00] VITALS: BP 101/60; PULSE 72; RESP 16; TEMP 36.3; O2SAT 93
--- NOTE | 2024-06-17 13:31 | P.PNOP_ITS ---
Subjective Subjective Date of Service: 06/17/24 Interval history: POD 1 s/p LT hip IMN no overnight events resting in bed denies cp,palpitations, sob Physical Exam Vital Signs: Vital Signs: Last Vital Signs Temp 98.9 F 06/17/24 07:52 Pulse 68 06/17/24 07:52 Resp 16 06/17/24 07:52 BP 107/51 L 06/17/24 07:52 Pulse Ox 93 06/17/24 07:52 O2 Del Method Room Air 06/17/24 07:52 O2 Flow Rate 2 06/16/24 10:51 BMI result Body Mass Index 17.8 Const: General: cooperative, healthy appearing and no acute distress Resp: Effort & Inspection: normal respiratory effort and able to speak in complete sentences Cardio: Rate: regular rate Peripheral pulses: Peripheral pulses 2+ throughout GI: Palpation (GI): Soft to palpation Skin: General skin exam: no rashes or lesions noted Extrem: Other: bandage clean dry and intact. [place] intact. No erythema or effusion. Calf supple nontender. Neurovascularly intact. Procedures Date of Service Date of Service: 06/17/24 Progress Note: A&P Assessment and plan (1) Intertrochanteric fracture of left hip: Status: Acute Assessment and Plan: cont pain control PT/OT lt hip IMN wbat lovenox for dvt ppx dispo pending pt eval Time Spent With Patient Time: Total time managing care of this patient today ____ minutes. Quality Stroke Does the patient have a stroke diagnosis?: No VTE Prior VTE?: No VTE Risk Level:: Medical - moderate - high VTE Device Contraindication: N/A - Device Ordered VTE Drug Contraindication: Treatment Not Indicated
[2024-06-17 15:43] VITALS: BP 100/51; PULSE 71; RESP 18; TEMP 36.4; O2SAT 93
[2024-06-17 15:47] VITALS: BP 123/55; PULSE 93; RESP 20; TEMP 36.2; O2SAT 100
--- NOTE | 2024-06-17 17:51 | HO.POSTANES ---
Post Anesthesia Evaluation Post Anesthesia Evaluation Date of Service: 06/17/24 Vital Signs: Vital Signs Temp Pulse Resp BP Pulse Ox O2 Del Method 06/17/24 15:47 97.2 F 93 20 123/55 L 100 Room Air 06/17/24 15:43 97.5 F 71 18 100/51 L 93 Room Air 06/17/24 12:00 97.4 F 72 16 101/60 93 Room Air 06/17/24 07:52 98.9 F 68 16 107/51 L 93 Room Air Anesthesia: General LMA Mental Status: Awake Pain Control: Satisfactory Nausea/Vomiting: None Hydration: Adequate Anesthesia-Related Issues: No Anes. Related Issues
[2024-06-17] MEDS: ondansetron HCL 4 MG/2 ML VIAL IVPUSH (19:02)
[2024-06-18 03:04] VITALS: BP 121/59; PULSE 80; RESP 16; TEMP 36.4; O2SAT 93
[2024-06-18] MEDS: Acetaminophen 325 MG TABLET 650 MG PO (06:21)
[2024-06-18 08:00] VITALS: BP 97/49; PULSE 70; RESP 18; TEMP 36.5; O2SAT 95
--- NOTE | 2024-06-18 08:40 | P.PNOP_ITS ---
Subjective Subjective Date of Service: 06/18/24 Principal diagnosis: left hip pain Interval history: Ms. Perez is seen resting comfortably in bed this morning with complaints of mild discomfort along the lateral aspect of her left hip. She denies any fevers or chills. She has been weight-bearing as tolerated. Physical Exam Vital Signs: Vital Signs: Last Vital Signs Temp 97.7 F 06/18/24 08:00 Pulse 70 06/18/24 08:00 Resp 18 06/18/24 08:00 BP 97/49 L 06/18/24 08:00 Pulse Ox 95 06/18/24 08:00 O2 Del Method Room Air 06/18/24 08:00 O2 Flow Rate 2 06/16/24 10:51 BMI result Body Mass Index 17.8 Extrem: Other: Left lower extremity examination shows that the surgical dressing is clean, dry and intact, normal sensation to light touch, good capillary refill Procedures Date of Service Date of Service: 06/18/24 Progress Note: A&P Assessment and plan (1) Intertrochanteric fracture of left hip: Status: Acute Assessment and Plan: Ms. Perez continues to do well after undergoing left hip gamma nail placement on 06/16/2024. She can continue weight-bearing as tolerated. No total hip replacement precautions needed. 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 The patient is stable at present. Time Spent With Patient Time: Total time managing care of this patient today 10 minutes. Quality Stroke Does the patient have a stroke diagnosis?: No VTE Prior VTE?: No VTE Risk Level:: Medical - moderate - high VTE Device Contraindication: N/A - Device Ordered VTE Drug Contraindication: Treatment Not Indicated
--- NOTE | 2024-06-18 09:29 | P.PNIM_ITS ---
Subjective Subjective Date of Service: 06/18/24 Interval History: feeling whoozy Physical Exam 2 Vital Signs: Vital Signs: Last Vital Signs Temp 97.7 F 06/18/24 08:00 Pulse 70 06/18/24 08:00 Resp 18 06/18/24 08:00 BP 97/49 L 06/18/24 08:00 Pulse Ox 95 06/18/24 08:00 O2 Del Method Room Air 06/18/24 08:00 O2 Flow Rate 2 06/16/24 10:51 BMI result Body Mass Index 17.8 Extrem: Other: Left lower extremity examination shows that the surgical dressing is clean, dry and intact, normal sensation to light touch, good capillary refill Objective Data Active Medications Acetaminophen (Acetaminophen 325 Mg Tablet) 650 mg PO Q6H PRN PRN Reason: Pain, Mild (Pain Scale 1-3), fever or headache Last Admin: 06/18/24 06:21 Dose: 650 mg Documented By: SAY Amiodarone HCl (Amiodarone Hcl 200 Mg Tablet) 50 mg PO DAILY [facility] Last Admin: 06/17/24 09:27 Dose: 50 mg Documented By: ANAMARIA Calcium Carbonate (Calcium Carbonate 750 Mg Tab.Chew) 750 mg PO Q4H PRN PRN Reason: Heartburn Enoxaparin Sodium (Enoxaparin Sodium 40 Mg/0.4 Ml Syringe) 40 mg SUBCUT Q24H [facility] Last Admin: 06/17/24 09:27 Dose: 40 mg Documented By: ANAMARIA Magnesium Hydroxide (Milk Of Magnesia 30 Ml Oral.Susp) 30 ml PO DAILY PRN PRN Reason: Constipation Melatonin (Melatonin 3 Mg Tablet) 6 mg PO BEDTIME PRN PRN Reason: Insomnia Morphine Sulfate (Morphine Sulfate 4 Mg/Ml Cartridge) 4 mg IVPUSH Q4H PRN; Protocol PRN Reason: Pain, Severe (Pain Scale 7-10) Last Admin: 06/16/24 00:02 Dose: 4 mg Documented By: CINTHIA Pat Own Med ( Temozolomide 5 Mg Capsule) 10 mg PO BEDTIME [facility] Last Admin: 06/17/24 20:07 Dose: 10 mg Documented By: SAY [employer] Own Med ( Temozolomide 20 Mg Capsule) 60 mg PO BEDTIME [facility] Last Admin: 06/17/24 20:07 Dose: 60 mg Documented By: SAY Ondansetron HCl (Ondansetron Hcl 4 Mg/2 Ml Vial) 4 mg IVPUSH Q8H PRN PRN Reason: Nausea and Vomiting Last Admin: 06/17/24 19:02 Dose: 4 mg Documented By: SAY Sodium Chloride (0.9 % Sodium Chloride Flush 3 Ml Syringe) 3 ml IVFLUSH QSHIFT ZAHRAA Last Admin: 06/17/24 19:03 Dose: 3 ml Documented By: SAY Labs 06/17/24 05:42 06/17/24 05:41 Assessment and Plan (1) Intertrochanteric fracture of left hip: Status: Acute Plan 83-year-old female with 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 Left intertrochanteric fracture due to mechanical fall POD 2 PT recommending STR Brain tumor On chemotherapy Paroxysmal atrial fibrillation Not on anticoagulation Continue amiodarone dvt prophylaxis - lovenox dnr/dni reason for continued hospitalization: dispo planning Quality Stroke Does the patient have a stroke diagnosis?: No VTE Prior VTE?: No VTE Risk Level:: Medical - moderate - high VTE Device Contraindication: N/A - Device Ordered VTE Drug Contraindication: Treatment Not Indicated
[2024-06-18] MEDS: 0.9 % Sodium Chloride Flush 3 ML SYRINGE IVFLUSH ×4 (09:57→20:39)
[2024-06-18] MEDS: Enoxaparin Sodium 40 MG/0.4 ML SYRINGE SUBCUT (09:58)
[2024-06-18] MEDS: Amiodarone HCL 200 MG TABLET 50 MG PO (09:58)
[2024-06-18 12:25] VITALS: BP 77/47; BP 86/53; PULSE 66; O2SAT 95
[2024-06-18] MEDS: 0.9 % Sodium Chloride 1,000 ML 999 ML IV (15:05)
[2024-06-18 15:33] VITALS: BMI 17.8
[2024-06-18 15:45] VITALS: BP 127/58; PULSE 81; RESP 16; TEMP 37.3; O2SAT 98
[2024-06-18 19:20] VITALS: BP 96/49; PULSE 76; RESP 18; TEMP 36.2; O2SAT 98
[2024-06-18] MEDS: ondansetron HCL 4 MG/2 ML VIAL IVPUSH (19:31)
[2024-06-19 03:17] VITALS: BP 98/50; PULSE 75; RESP 16; TEMP 36.2; O2SAT 96
[2024-06-19 07:58] VITALS: BP 87/43; PULSE 75; RESP 16; TEMP 36.3; O2SAT 97
[2024-06-19] MEDS: Lactated Ringers 1,000 ML 999 ML IV (08:17)
[2024-06-19 09:40] VITALS: BP 116/57; PULSE 77
[2024-06-19] MEDS: Enoxaparin Sodium 40 MG/0.4 ML SYRINGE SUBCUT (09:42)
[2024-06-19] MEDS: Amiodarone HCL 200 MG TABLET 50 MG PO (09:43)
--- NOTE | 2024-06-19 10:37 | PM.DS ---
DS: Providers Provider Date of Service: 06/19/24 Date of admission: 06/15/24 21:22 Date of discharge: 06/19/24 Primary care physician: Doris Prince MD Consults: 06/15/24 21:59 Consult to Orthopedics Routine Consulting Provider: [facility] Reason for consultation: intratrochanteric fracture of the left hip. 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 Patient states that during golf she missed her swing, spun around 360 and fell on her left hip. Has been having pain with movement of the left lower extremity since the fall. She is currently on chemotherapy for her brain tumor. No dizziness or lightheadedness prior to the fall. No chest pain or palpitations prior to the fall. No rhythmic jerking movement of extremities. No fever, chills, abdominal pain, changes in urinary or bowel habits. In the emergency department, imaging with comminuted displaced intertrochanteric fracture of the left hip. hospital course: Patient was admitted for left anterior trochanteric fracture due to mechanical fall. Underwent surgery, Sunil operative period was unremarkable. Patient will continue DVT prophylaxis with Lovenox for 6 weeks and go to [facility]. For brain tumor will continue on her chemotherapy orals, for paroxysmal atrial fibrillation she is no longer on anticoagulation she was continued on amiodarone. Time Attestation Discharge Coordination Time (in mins): 34 Quality: Safe Use of Opioids Does Pt have an Active Cancer Diagnosis on the Problem List?: Yes Opioid Measure Date for [facility] Report: 05/20/24 Opioid Measure Time for [facility] Report: 10:38 Quality: Stroke Does the patient have a stroke diagnosis?: No Physical Exam Vital Signs: Vital Signs: Last Vital Signs Temp 97.3 F 06/19/24 07:58 Pulse 77 06/19/24 09:40 Resp 16 06/19/24 07:58 BP 116/57 L 06/19/24 09:40 Pulse Ox 97 06/19/24 07:58 O2 Del Method Room Air 06/19/24 07:58 O2 Flow Rate 2 06/16/24 10:51 BMI result Body Mass Index 17.8 Extrem: Other: Left lower extremity examination shows that the surgical dressing is clean, dry and intact, normal sensation to light touch, good capillary refill Discharge Plan Discharge Anticipated Discharge Date/Time: 06/19/24 10:35 Patient Disposition: Xfer SNF Discharge Diagnosis: hip fracture Referrals: Doris Prince MD [Primary Care Provider] - 1 Week Kendall Galeana MD [Physician] - 2 Weeks Discharge Medications: New enoxaparin 40 mg/0.4 mL Syringe 40 mg subcut Q24H Qty: 0 0RF Continued amiodarone 100 mg tablet 50 mg PO DAILY temozolomide 5 mg Capsule 10 mg PO BEDTIME Rx Instructions: administer with 1 - 250 mg cap for each dose; must be taken on empty stomach ondansetron 4 mg Tablet,Disintegrating 4 mg PO BEDTIME Rx Instructions: Take with Temozolomide 5mg and 25mg tablets at night. temozolomide 20 mg Capsule 60 mg PO BEDTIME Centrum Silver Women 8 mg iron-400 mcg-50 mcg Tablet 1 tab PO DAILY Discharge Orders: Discharge Order (Routine); Ordered 06/19/24 Ordered By: Quincy Crowder Diet: Advance to usual diet Activity on Discharge: As tolerated Stand Alone Forms: Patient Portal Discharge page Print Language: Kinyarwanda Care Plan Goals: recovery Health Concerns: hip fracture Plan of Treatment: see below Assessment: Gait training, strengthening, ADLs Continue dvt ppx x6 weeks Keep dressing clean,dry and intact-no showering or tub baths Follow up with Orthopedics in 2 weeks
--- NOTE | 2024-06-19 14:51 | MHC.CM.PN ---
Addendum entered by Shannan Whittington 06/19/24 15:06: Correction clearical error: Important message from given not IMM Original Note: IMM 06/19/24 Patient received a bed offer from [facility], which was her 1st choice. She transferred via BLS to [facility] at 2pm. All dc info has been sent to the facility.
== END 2024-06-19 14:28 | disposition skilled nursing facility (03) | DRG 481 ==
LOC: HO.ED 20:51 → HO.EDOVER 21:28 → HO.S3 21:36
PROVIDERS: Nurse Practitioner Family; Orthopaedic Surgery; Admitting Provider Student in an Organized Health Care Education/Training Program; Emergency Provider Emergency Medicine; PCP Internal Medicine; Visit Provider Internal Medicine
PROC: 0QS704Z Reposition Left Upper Femur with Internal Fixation Device, Open Approach (ICD-10-PCS; principal; 2024-06-16 08:15)
DX: S72.142A Displaced intertrochanteric fracture of left femur, initial encounter for closed fracture (principal); C71.9 Malignant neoplasm of brain, unspecified; W19.XXXA Unspecified fall, initial encounter; I95.2 Hypotension due to drugs; E86.1 Hypovolemia; I48.0 Paroxysmal atrial fibrillation; Z66 Do not resuscitate; Z87.891 Personal history of nicotine dependence; Z79.899 Other long term (current) drug therapy
CPT/HCPCS: 36415; 70450; 72125; 73502; 73700; 80048; 80053; 85025; 85027; 97162; 97166; 97530; 99285; C1713; J0690; J1100; J1650; J2270; J2405; J2704; J3010; J7120

== ENCOUNTER → 2024-06-15 14:52 | Outpatient (BNV) | payer MEDICARE, OTHER, SELFPAY | PROVIDERS: Emergency Provider Emergency Medicine; PCP Internal Medicine; Visit Provider Physician Assistant | DX: S72.142A Displaced intertrochanteric fracture of left femur, initial encounter for closed fracture (principal) | CPT/HCPCS: 27245; 99024; 99222; 99499 ==

== ENCOUNTER → 2024-06-15 21:22 | Outpatient (BNV) | payer MEDICARE, OTHER, SELFPAY | PROVIDERS: Admitting Provider Student in an Organized Health Care Education/Training Program; Emergency Provider Emergency Medicine; PCP Internal Medicine; Visit Provider Student in an Organized Health Care Education/Training Program | DX: S72.142A Displaced intertrochanteric fracture of left femur, initial encounter for closed fracture (principal); W19.XXXA Unspecified fall, initial encounter; D49.6 Neoplasm of unspecified behavior of brain; I48.0 Paroxysmal atrial fibrillation | CPT/HCPCS: 99222; 99232; 99239 ==

== ENCOUNTER 2024-06-27 11:10 | Outpatient (AMB) | payer MEDICARE, OTHER, SELFPAY ==
--- NOTE | 2024-06-27 12:11 | MHC.OFFVIS ---
Intake Visit Reasons: PO-s/p Lt hip IMN 06/16/24 Intake Note: Lucia is a 83 year old female who presents today post operatively s/p ORIF of left hip intertrochanteric fracture with placement of a short gamma nail DOS: 06/16/2024 w/ Dr Galeana. Patient reports pain with movement. She said yesterday she worked with PT and after her visit she was in a lot of pain. She takes Tylenol for pain and says she is finding relief with this. She would like how long her recovery period will be and when will she be able to leave the facility she is in. Allergies No Known Allergies Allergy (Mild, Unverified 06/27/24 12:15) HPI HPI PO-s/p Lt hip IMN 06/16/24: Details: Patient is an 83-year-old female who presents for postoperative evaluation status post left hip IM nail placement with Dr. Galeana, DOS 06/16/2024. Today, the patient reports that she is feeling well, and is experiencing no pain at baseline. The patient reports that the only time she really experiences any discomfort in her left hip is after working with physical therapy, when she states that she feels quite sore. Patient states that Tylenol is very effective in controlling this pain after therapy. Patient denies any numbness or tingling in the left lower extremity. Patient also states that the dressing applied to her left hip has remained clean, dry, intact since discharge from the hospital. She also reports that her functional capacity has increased significantly with physical therapy since surgery. No other acute complaints or concerns at this time. [facility] Medical History Paroxysmal atrial fibrillation Brain tumor Social History Household Members: Children Housing: House Do you presently have visiting nurse or other home services: No Patient Tobacco Use Status: Never used Tobacco Advance Directives Date on File: 06/15/24 Physical Exam Extrem Other: On inspection, incision sites on the lateral left hip are clean, dry, intact No surrounding edema, erythema, ecchymosis noted No discharge noted Incision sites are well approximated No evidence of infection Patient reports no tenderness to palpation about the incision sites of the left hip Patient is able to actively flex at the left hip at this time, however it is decreased from her flexion capacity of the left Distal sensation intact Capillary refill brisk Results Reviewed Results Reviewed: X-rays obtained in the office today and independently reviewed by me, Gopal Dawson PA-C, demonstrate well approximated intertrochanteric fracture with hardware in satisfactory clinical alignment. No other fracture or acute bony abnormality noted Assessment & Plan Assessment & Plan (1) Intertrochanteric fracture of left hip: Code(s): S72.142A - Displaced intertrochanteric fracture of left femur, initial encounter for closed fracture Category: Medical Plan 1. Intertrochanteric fracture of the left hip status post left IM nail placement DOS 06/11/2024 Patient appears to be recovering well postoperatively Patient is educated about the typical recovery course [place] removed in the office today Patient is informed that I feel she is doing very well postoperatively, and then she should continue with her physical therapy in her rehab facility Patient is educated about the worrisome signs and symptoms of postoperative complications, such as increasing pain, increasing erythema, edema of the left lower extremity Patient is amenable to this plan Patient will follow-up in 4 weeks with repeat x-rays, sooner with any acute concerns Orders: Orders XR hip LT min 2V Today M25.552 - Pain in left hip XR femur LT 2V Today M79.606 - Pain in leg, unspecified Coding Level of Care Code Global (29121) Diagnoses Intertrochanteric fracture of left hip S72.142A
== END 2024-06-27 12:48 | disposition home or self-care (01) ==
PROVIDERS: PCP Internal Medicine
DX: S72.142A Displaced intertrochanteric fracture of left femur, initial encounter for closed fracture (principal)
CPT/HCPCS: 99024

== ENCOUNTER 2024-06-27 11:24 | Outpatient (REF) | payer MEDICARE, OTHER, SELFPAY ==
--- NOTE | ~2024-06-27 | XR_ITS ---
EXAMINATION: XR FEMUR, LEFT CLINICAL INFORMATION: Pain in leg, unspecified. Additional Notes/Special Instructions s/p IM nail. COMPARISON: 06/15/2024 TECHNIQUE: AP and lateral views of the left femur were obtained. FINDINGS: Status post ORIF of the left proximal femoral intertrochanteric fracture with a short intramedullary nail, femoral neck screw, and single distal interlocking screw. Alignment appears near-anatomic. Bones are osteopenic. 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 Soft tissues are swollen at the hip with skin valeria laterally. XR/XR femur LT 2V IMPRESSION: Near-anatomic alignment of the left intertrochanteric femoral fracture status post ORIF. Electronically signed by: Toni Harrison MD 07/10/2024 11:46 PM EDT
== END 2024-06-27 11:25 | disposition home or self-care (01) ==
LOC: HO.HOSX 11:24
PROVIDERS: PCP Internal Medicine
DX: M79.605 Pain in left leg (principal); S72.142D Displaced intertrochanteric fracture of left femur, subsequent encounter for closed fracture with routine healing
CPT/HCPCS: 73552; 99212

== ENCOUNTER 2024-07-24 08:29 | Outpatient (REF) | payer MEDICARE, OTHER, SELFPAY | END 2024-07-24 08:30 | disposition home or self-care (01) | LOC: HO.HOSX 08:29 | DX: M25.552 Pain in left hip (principal); S72.142D Displaced intertrochanteric fracture of left femur, subsequent encounter for closed fracture with routine healing; Z98.890 Other specified postprocedural states | CPT/HCPCS: 73502; 99212 ==

== ENCOUNTER 2024-07-24 11:21 | Outpatient (AMB) | payer MEDICARE, OTHER, SELFPAY ==
--- NOTE | 2024-07-24 11:28 | MHC.OFFVIS ---
Intake Visit Reasons: PO-s/p Lt hip IMN 06/16/24 Intake Note: Lucia is a 83 year old female who presents today post operatively s/p ORIF of left hip intertrochanteric fracture with placement of a short gamma nail DOS: 06/16/2024 w/ Dr Galeana. Pt states she has pain at nighttime but states she has been using lidocaine patches which help. Pt states she is currently in PT 2 times a week and has also been doing at home exercises which has been helpful. Allergies No Known Allergies Allergy (Mild, Unverified 07/24/24 11:29) HPI HPI PO-s/p Lt hip IMN 06/16/24: Details: Patient is an 83-year-old female who presents for 6 week postop evaluation status post left hip IM nail placement with Dr. Galeana, DOS 06/16/2024. Today, the patient reports that she is feeling well, and has no acute complaints or concerns at this time. The patient states that she feels therapy is going well, and then her mobility is improving every day. Patient reports that she does still have some minor discomfort in the hip exclusively at night, but this is improving and resolves with a lidocaine patch. Of note, the patient reports that she did self discontinue her anticoagulation, as she felt that she was moving around enough that she did not require this therapy further. The patient expresses that she like to go to her home in [place] in 1 month, and inquires if this will be okay from a medical standpoint. No other acute complaints or concerns at this time. [facility] Medical History Paroxysmal atrial fibrillation Brain tumor Social History Household Members: Children Housing: House Do you presently have visiting nurse or other home services: No Patient Tobacco Use Status: Never used Tobacco Advance Directives Date on File: 06/15/24 Review of Systems Const All systems reviewed & are unremarkable except as noted in HPI and below Physical Exam Extrem Other: On inspection, there is no visible deformity of the patient's left hip No erythema, edema, ecchymosis noted Well-healed incision sites with no evidence of drainage or infection Patient reports no tenderness to palpation about the left hip Patient is able to flex and extend the left hip without difficulty, and is able to lift her leg off the chair from a seated position Nonantalgic gait noted with a walker Distal sensation intact Capillary refill brisk Results Reviewed Results Reviewed: X-rays obtained in the office today and independently reviewed by me, Gopal Dawson PA-C, demonstrate well approximated intertrochanteric fracture of the left hip with orthopedic hardware in place and in satisfactory clinical alignment with evidence of interval bony healing. Assessment & Plan Assessment & Plan (1) Intertrochanteric fracture of left hip: Code(s): S72.142A - Displaced intertrochanteric fracture of left femur, initial encounter for closed fracture Category: Medical Plan 1. Intertrochanteric fracture of the left hip status post IM nail placement with Dr. Galeana DOS 06/11/2024 Patient appears to be recovering well postoperatively Patient is educated about the typical recovery course At this time, patient is informed that it was not advisable to travel by airplane for 3 months postoperatively Patient states that she will be delaying her trip to [place] for another month to avoid any potential blood clot or other complications Patient is advised to continue with physical and occupational therapy for improvement of range of motion and functional capacity of the left leg Patient was amenable to this plan Patient will follow-up in 4 weeks with repeat x-rays, sooner with any acute concerns Orders: Orders XR hip LT min 2V Today M25.552 - Pain in left hip Coding Level of Care Code Global (48391) Diagnoses Intertrochanteric fracture of left hip S72.142A
== END 2024-07-24 11:52 | disposition home or self-care (01) ==
PROVIDERS: PCP Internal Medicine
DX: S72.142A Displaced intertrochanteric fracture of left femur, initial encounter for closed fracture (principal)
CPT/HCPCS: 99024

== ENCOUNTER 2024-09-04 10:37 | Outpatient (REF) | payer MEDICARE, SELFPAY | END 2024-09-04 10:38 | disposition home or self-care (01) | LOC: HO.HOSX 10:37 | PROVIDERS: PCP Internal Medicine | DX: M25.552 Pain in left hip (principal); S72.142D Displaced intertrochanteric fracture of left femur, subsequent encounter for closed fracture with routine healing; Z98.890 Other specified postprocedural states | CPT/HCPCS: 73502; 99212 ==

== ENCOUNTER 2024-09-04 10:37 | Outpatient (AMB) | payer MEDICARE, SELFPAY ==
--- NOTE | 2024-09-04 10:40 | MHC.OFFVIS ---
Vital Signs 09/04/24 10:59 Height 5 ft 3 in Weight 109 lb BMI 19.3 Intake Visit Reasons: PO-s/p Lt hip IMN 06/16/24-w/xray Intake Note: Lucia is a 83 year old female who presents today post operatively utilizing a cane for ambulation s/p ORIF of left hip intertrochanteric fracture with placement of a short gamma nail w/ Dr Hua DOS: 06/16/2024. Patient reports most of the time her hip is okay. At night she has the most pain and discomfort so she take Tylenol and puts a lidocaine patch on her hip and finds relief. She was doing PT at home however she was told she is doing good so he will no longer be making any more visits. Allergies No Known Allergies Allergy (Mild, Unverified 09/04/24 10:59) HPI HPI PO-s/p Lt hip IMN 06/16/24-w/xray: Details: Patient is an 83-year-old female who presents for postoperative evaluation status post left hip IM nail with Dr. Galeana, DOS 06/16/2024. The patient states that she is feeling very well at this time, and she has no complaints or concerns. She reports that she was discharged from at home physical therapy, and she does not feel she needs any outpatient OT at this time. No other acute complaints or concerns at this time. [facility] Medical History Paroxysmal atrial fibrillation Brain tumor Social History Household Members: Children Housing: House Do you presently have visiting nurse or other home services: No Patient Tobacco Use Status: Never used Tobacco Advance Directives Date on File: 06/15/24 Physical Exam Vital Signs: BMI result Body Mass Index 19.3 Extrem Other: On inspection, there is no visible deformity of the patient's left hip No erythema, edema, ecchymosis noted Well-healed incision sites with no evidence of drainage or infection Patient reports no tenderness to palpation about the left hip Patient is able to flex and extend the left hip without difficulty, and is able to lift her leg off the chair from a seated position Nonantalgic gait noted with a walker Distal sensation intact Capillary refill brisk Results Reviewed Results Reviewed: X-rays obtained in the office today and independently reviewed by me, Gopal Dawson PA-C, demonstrate well approximated intertrochanteric fracture of the left hip with orthopedic hardware in place and in satisfactory clinical alignment with evidence of interval bony healing. Assessment & Plan Assessment & Plan (1) Intertrochanteric fracture of left hip: Code(s): S72.142A - Displaced intertrochanteric fracture of left femur, initial encounter for closed fracture Category: Medical Plan 1. Intertrochanteric fracture of the left hip status post IM nail placement with Dr. Galeana DOS 06/11/2024 Patient appears to be recovering well postoperatively Patient is educated about the typical recovery course At this time, patient is informed that it was not advisable to travel by airplane for 3 months postoperatively Patient states that she will be delaying her trip to [place] for another month to avoid any potential blood clot or other complications The patient is offered a course of outpatient physical therapy for improvement of her range of motion and gait training, but declines, stating ?I have enough appointments, I do not need another one? Patient is educated on the potential effects of not having full gait training and range of motion improvements States understanding of this Patient will not require any acute follow-up at this time, as she appears to have recovered very well postoperatively and Her x-rays show no signs of concern patient was amenable to this plan Patient will follow-up as needed with any acute concerns Patient will follow-up in 4 weeks with repeat x-rays, sooner with any acute concerns Orders: Orders XR hip LT min 2V Today M25.552 - Pain in left hip Coding Level of Care Code Global (12475) Diagnoses Intertrochanteric fracture of left hip S72.142A
[2024-09-04 10:59] VITALS: BMI 19.3
== END 2024-09-04 11:11 | disposition home or self-care (01) ==
PROVIDERS: PCP Internal Medicine
DX: S72.142A Displaced intertrochanteric fracture of left femur, initial encounter for closed fracture (principal)
CPT/HCPCS: 99024

== ENCOUNTER 2025-04-28 13:26 | Emergency (ER) | payer MEDICARE, OTHER, SELFPAY ==
--- NOTE | ~2025-04-28 | XR_ITS ---
CLINICAL HISTORY: post reduction Radiographs of the left wrist, 3 views Comparison: CR - XR WRIST LT MIN 3V - Findings: Interval reduction and casting of the fractures of the distal radius and ulna with decrease in dorsal angulation and displacement of the fracture of the distal radius. No dislocation. Mild degenerative change. Bone mineralization is decreased. Soft tissue swelling. Impression: Successful reduction. This document has been electronically signed by: Radha Wynne MD on 04/28/2025 17:59:42
--- NOTE | ~2025-04-28 | XR_ITS ---
CLINICAL HISTORY: trauma, pain, swelling Radiographs of the left wrist, 4 views Comparison: None available Findings: Fracture of the distal radial metaphysis with oblique and horizontally oriented fracture lines. Mild impaction measures up to 5 mm. Volar displacement measures up to 2 mm with volar angulation measuring up to 25 degrees. There is also a fracture of the distal ulnar metaphysis with comminution. Displacement measures up to 2 mm. There is a fracture of the styloid process of the ulna which is displaced by up to 3 mm. There is no dislocation. There is no intra-articular extension. Mild degenerative change. Bone mineralization is decreased. Soft tissue swelling. Impression: Fractures of the distal radial metaphysis, distal ulnar metaphysis and styloid process of the ulna. This document has been electronically signed by: Radha Wynne MD on 04/28/2025 16:17:06
--- NOTE | ~2025-04-28 | XR_ITS ---
CLINICAL HISTORY: weakness Chest Radiographs, 2 views Comparison: None available Findings: No cardiomegaly. Tortuous aorta. Otherwise normal mediastinal contours. No pneumothorax. No opacity. No pleural effusion. Normal upper abdomen. No acute fracture. Mild multilevel vertebral body height loss without identified fracture lines. Impression: No acute findings. This document has been electronically signed by: Radha Wynne MD on 04/28/2025 16:18:16
--- NOTE | ~2025-04-28 | CT_ITS ---
CLINICAL HISTORY: fall, trauma CT head without contrast Comparison: 06/15/24 Findings: No acute hemorrhage. No extra-axial fluid collection. No hydrocephalus, mass-effect or herniation. Simmons-white differentiation is maintained. There is patchy hypoattenuation of the periventricular and deep white matter, which is most likely the sequela of [id number] chronic small vessel ischemic disease and is similar to the prior study. Resection cavity in the right temporal lobe with extension towards junction with the right parietal and occipital lobes with adjacent gliosis, unchanged. There are calcifications along the inferior aspect of the resection cavity which are superior to the right tentorium, unchanged. Associated ex vacuo dilatation of the right lateral ventricle, unchanged No acute orbital pathology. No acute soft tissue abnormality. No fracture. Remote right temporal craniotomy with associated dural thickening, unchanged. Mucosal thickening versus retention cyst/polyp in right maxillary sinus, unchanged. The other visualized paranasal sinuses are predominantly clear. Partial opacification of the mastoid air cells could be secondary to an effusion or mastoiditis, also present on the prior study. Impression: No intracranial acute findings. Stable postsurgical findings. This document has been electronically signed by: Radha Wynne MD on 04/28/2025 16:27:49
--- NOTE | ~2025-04-28 | CT_ITS ---
CLINICAL HISTORY: fall, weakness CT cervical spine without contrast Comparison: 06/15/24 Findings: Mild multilevel anterolisthesis, degenerative. No fracture. No severe central spinal canal stenosis. No epidural hematoma. Normal thickness of the prevertebral soft tissues. The lung apices are clear. Impression: No acute findings. This document has been electronically signed by: Radha Wynne MD on 04/28/2025 16:51:19
--- NOTE | ~2025-04-28 | XR_ITS ---
CLINICAL HISTORY: pain Radiographs of the left elbow, 3 views Comparison: None available Findings: No fracture or dislocation. No degenerative change. Bone mineralization is decreased. No joint effusion. Soft tissue swelling. Impression: No fracture. This document has been electronically signed by: Radha Wynne MD on 04/28/2025 16:18:48
[2025-04-28 14:28] VITALS: BP 137/51; PULSE 49; RESP 16; TEMP 36.1; O2SAT 97; BMI 19.5
--- NOTE | 2025-04-28 14:35 | ECG_ITS ---
Test Reason : fall Blood Pressure : */* mmHG Vent. Rate : 47 BPM Atrial Rate : 47 BPM P-R Int : 176 ms QRS Dur : 132 ms QT Int : 496 ms P-R-T Axes : 32 -68 58 degrees QTcB Int : 438 ms Sinus bradycardia Left axis deviation Left bundle branch block Abnormal ECG When compared with ECG of 25-Mar-2009 14:54, LBBB present Referred By: Aravind Ramirez Electronically Signed By: MARTINE DUMONT
--- NOTE | 2025-04-28 14:35 | ED.GENADULT ---
HPI - General Adult General Chief complaint: Fall Stated complaint: pain in Left hand Time Seen by Provider: 04/28/25 16:23 Source: patient Mode of arrival: ambulatory Limitations: no limitations History of Present Illness ED Provider: HPI narrative: Patient is 84 years old apparently was going from a garage into the house some how she missed step and fell backwards from 3rd step landed on her left wrist hitting her head to the side no loss of consciousness no chest pain other injuries complaining of pain in the left wrist mostly patient is not on any anticoagulant Related Data Home Medications ?Medication ?Instructions ?Recorded ?Confirmed amiodarone 100 mg tablet 50 mg PO DAILY 06/15/24 06/15/24 wlkwwzff-spow-ucnl 8 mg-folic 400 1 tab PO DAILY 06/15/24 06/15/24 mcg-K 50 mcg-lutein 300 mcg tablet (Centrum Silver Women) ondansetron 4 mg disintegrating 4 mg PO BEDTIME 06/15/24 06/15/24 tablet temozolomide 20 mg capsule 60 mg PO BEDTIME 06/15/24 06/15/24 temozolomide 5 mg capsule 10 mg PO BEDTIME 06/15/24 06/15/24 acetaminophen 325 mg tablet 325 mg PO QID PRN 06/27/24 ascorbic acid (vitamin C) 500 mg mg PO DAILY 06/27/24 capsule bisacodyl 10 mg rectal suppository 10 mg NC DAILY PRN 06/27/24 (Dulcolax (bisacodyl)) docusate sodium 100 mg capsule 100 mg PO DAILY PRN 06/27/24 ferrous sulfate 325 mg (65 mg 325 mg PO DAILY 06/27/24 iron) tablet Previous Rx's ?Medication ?Instructions ?Recorded enoxaparin 40 mg/0.4 mL 40 mg (0.4 mL) subcut Q24H #0 mL 06/19/24 subcutaneous syringe tramadol 50 mg tablet 50 mg PO Q8H PRN pain (scale score 04/28/25 7-10) #10 tabs Allergies Allergy/AdvReac Type Severity Reaction Status Date / Time No Known Allergies Allergy Mild Verified 04/28/25 14:31 Review of Systems Review of Systems: Yes all other systems are reviewed and are negative PMFSH Past Medical History Medical History Paroxysmal atrial fibrillation Brain tumor Surgical History (Updated 04/28/25 @ 18:10 by Dallin Colon MD) H/O craniotomy Social History Social History Household Members: Children Housing: House Do you presently have visiting nurse or other home services: No Patient Tobacco Use Status: Never used Tobacco Advance Directives: Yes Advance Directives Information Provided: Yes Advance Directives on File: No Advance Directives Date on File: 06/15/24 Do you have a plan to hurt others: No Plan Physical Exam ED Vital Signs: Vital Signs - 24 hr 04/28/25 14:28 04/28/25 16:40 04/28/25 17:43 Temperature 97.0 F 97.7 F 97.7 F Pulse Rate 49 L 50 50 Respiratory Rate 16 16 Blood Pressure 137/51 L 152/58 H 152/58 H Pulse Oximetry 97 100 100 Oxygen Delivery Method Room Air Room Air Room Air BMI result Body Mass Index 19.5 Appearance: Alert. Oriented X3. No acute distress. Eyes: PERRLA, No Nystagmus ENT: Pharynx normal. Oral Mucosa moist atraumatic normocephalic Neck: Normal inspection. Neck supple. No midline tenderness CVS: Normal heart rate and rhythm. Pulses normal. Respiratory: No respiratory distress. Equal air entry bilateral, no wheezing/rales/rhonchi Abdomen: Soft and nontender. Bowel sounds are present, no mass palpable, no CVA tenderness Skin: Skin warm and dry. Normal skin color. Normal skin turgor. Extremities: No lower extremity edema. No calf tenderness left wrist swollen diffusely tender obvious deformity neurovascular intact Neuro: Oriented X 3. No motor deficit. No sensory deficit.No cerebellar signs , cranial nerves II-XII intact Course Course Course Narrative: Medical screening exam performed. Please refer to detailed history, exam, evaluation, and management by primary provider. 84-year-old female was going up 3 steps when she went to open the door, lost her balance and fell backwards, landing on her left wrist. Pain to the left wrist. Struck head. No LOC, no prodromal symptoms. Labs, EKG and imaging. Took Tylenol at approximately 1230. Incident occurred approximately 12:00 p.m. today. Medications Administered Discontinued Medications Generic Name Dose Route Start Last Admin Trade Name Mily PRN Reason Stop Dose Admin Lidocaine HCl 10 ml 04/28/25 16:38 04/28/25 16:41 Lidocaine Hcl 1 % 20 Ml Vial INFILTRATI 04/28/25 16:39 10 ml ONCE ONE Administration Procedures Orthopedic Fracture Reduction Fracture #1: Time Out Performed: Yes Side: left Analgesia: hematoma block Technique: direct manipulation Post Reduction X-rays Demonstrate: anatomical reduction Post-reduction neuro exam: intact Post-reduction vascular exam: intact Splint Applied: Yes Patient Tolerated Procedure: well Orthopedic Splinting/Casting Injury #1: Side: left Upper Extremity Injury Location: wrist Upper Extremity Immobilizer: sugar tong splint Medical Decision Making Medical Decision Making [facility] Narrative: Patient is 84 years old came here after mechanical fall left wrist came with obvious deformity of left x-ray showed both radial and ulnar distal end fracture with angulation which was successfully reduced , splint was applied patient advised to follow up with Orthopedic Differential Diagnosis Differential Diagnoses: The differential diagnosis associated with the presentation includes Lab Data [facility] Lab Attestation statement: I reviewed the patient's lab results. 04/28/25 14:49 04/28/25 14:49 Labs: Lab Results 04/28/25 Range/Units 14:49 WBC 7.8 (4.8-10.8) X10*3/uL RBC 3.38 L (4.20-5.50) X10*6/uL Hgb 11.1 L (12.0-16.0) g/dl Hct 32.9 L (37.0-47.0) % MCV 97.3 (80.0-98.0) fL MCH 32.8 (27.0-33.0) pg MCHC 33.7 (31.0-35.0) g/dl RDW 14.4 (11.0-16.0) % Plt Count 160 (160-400) X10*3/uL MPV 8.6 L (9.4-12.3) fL Immature Gran % (Auto) 0.3 (0.0-0.4) % Neut % (Auto) 79.1 H (45-73) % Lymph % (Auto) 12.8 L (20-40) % [place] % (Auto) 6.6 (2-11) % Eos % (Auto) 1.1 (0-4) % Baso % (Auto) 0.1 (0-2) % Lymph # (Auto) 1.0 L (1.2-4.9) X10*3/uL [place] # (Auto) 0.5 (0.1-1.2) X10*3/uL Eos # (Auto) 0.1 (0.0-0.4) X10*3/uL Baso # (Auto) 0.0 (0.0-0.2) X10*3/uL Abs Immat Gran (auto) 0.02 (0.00-0.03) X10*3/uL Absolute Neuts (auto) 6.2 (2.0-8.3) x10*3/uL Absolute Nucleated RBC 0.000 (0.0-0.012) X10*3/uL Nucleated RBC % (auto) 0.0 (0.0-0.2) /100WBC Sodium 144 (135-145) mmol/L Potassium 4.3 (3.3-5.1) mmol/L Chloride 115 H (96-108) mmol/L Carbon Dioxide 21 L (22-29) mmol/L Anion Gap 12 (12-20) BUN 30 H (9-16) mg/dL Creatinine 1.17 (0.5-1.4) mg/dL Estim Creat Clear Calc 28.3 Estimated GFR 44 Random Glucose 136 H (60-115) mg/dL Calcium 9.1 (8.4-10.2) mg/dL Troponin I High Sens 7.5 (<3.5-17.0) ng/L Independent Interpretation I performed an independent interpretation of an: EKG, Plain X-Ray and CT Scan Interpretation: Sinus bradycardia ventricular rate 47 beats per minute left axis deviation left bundle-branch block no acute STT wave changes no acute ischemia Radiology Impression Discussion of test interpretation with radiology: I have reviewed the radiologist's reading. Discharge Plan Discharge Clinical Impression: Fracture of wrist Patient Disposition: Home, Self-Care Instructions: Wrist Fracture in Adults (ED) Additional Instructions: Wear the splint as placed till you see orthopedics Keep your left hand elevated Use sling Tylenol/ibuprofen for pain Prescriptions: New tramadol 50 mg tablet 50 mg PO Q8H PRN (Reason: pain (scale score 7-10)) Qty: 10 0RF No Action amiodarone 100 mg tablet 50 mg PO DAILY temozolomide 5 mg Capsule 10 mg PO BEDTIME Rx Instructions: administer with 1 - 250 mg cap for each dose; must be taken on empty stomach ondansetron 4 mg Tablet,Disintegrating 4 mg PO BEDTIME Rx Instructions: Take with Temozolomide 5mg and 25mg tablets at night. temozolomide 20 mg Capsule 60 mg PO BEDTIME Centrum Silver Women 8 mg iron-400 mcg-50 mcg Tablet 1 tab PO DAILY enoxaparin 40 mg/0.4 mL Syringe 40 mg subcut Q24H Qty: 0 0RF acetaminophen 325 mg tablet 325 mg PO QID PRN ascorbic acid (vitamin C) 500 mg capsule PO DAILY docusate sodium 100 mg capsule 100 mg PO DAILY PRN bisacodyl [Dulcolax (bisacodyl)] 10 mg suppository 10 mg NC DAILY PRN ferrous sulfate 325 mg (65 mg iron) tablet 325 mg PO DAILY Referrals: Sae Hua MD [Physician, Orthopedics] Referral Note: l wrist fracture Interventions: ED Discharge Assessment Last Done: 04/28/25 17:43 Discharge Date/Time: 04/28/25 17:44 Print Language: Macedonian
[2025-04-28 15:00] LABS: MANUAL DIFF FLAG NO
[2025-04-28 15:01] LABS: Hematocrit 32.9 % (37.0-47.0); Hemoglobin 11.1 g/dl (12.0-16.0); Imm Gran Abs Auto 0.02 X10*3/uL (0.00-0.03); Imm Gran Pct Auto 0.3 % (0.0-0.4); Lymphocytes Absolute Auto 1.0 X10*3/uL (1.2-4.9); Mean Corpuscular HGB Conc 33.7 g/dl (31.0-35.0); Mean Corpuscular Hemoglobin 32.8 pg (27.0-33.0); Mean Corpuscular Volume 97.3 fL (80.0-98.0); NRBC Abs Auto 0.000 X10*3/uL (0.0-0.012); NRBC Pct Auto 0.0 /100WBC (0.0-0.2); Platelet Count 160 X10*3/uL (160-400); Red Blood Count 3.38 X10*6/uL (4.20-5.50); White Blood Count 7.8 X10*3/uL (4.8-10.8)
[2025-04-28 15:12] LABS: Anion Gap 12 (12-20); Blood Urea Nitrogen 30 mg/dL (9-16); Calcium 9.1 mg/dL (8.4-10.2); Carbon Dioxide 21 mmol/L (22-29); Chloride 115 mmol/L (96-108); Creatinine Clr Calc Pharmacy 28.3; Estimated Glomerular Filt Rate 44; Potassium 4.3 mmol/L (3.3-5.1); Sodium 144 mmol/L (135-145)
[2025-04-28 15:20] LABS: Troponin-I High Sensitivity 7.5 ng/L (<3.5-17.0)
[2025-04-28 16:40] VITALS: BP 152/58; PULSE 50; TEMP 36.5; O2SAT 100
[2025-04-28] MEDS: Lidocaine HCl 1 % 20 ML VIAL 10 ML INFILTRATI (16:41)
[2025-04-28 17:43] VITALS: BP 152/58; PULSE 50; RESP 16; TEMP 36.5; O2SAT 100
== END 2025-04-28 17:44 | disposition home or self-care (01) ==
PROVIDERS: Physician Assistant; Emergency Provider Internal Medicine; PCP Internal Medicine
DX: S62.102A Fracture of unspecified carpal bone, left wrist, initial encounter for closed fracture (principal); R51.9 Headache, unspecified; R07.89 Other chest pain; M54.2 Cervicalgia; M25.532 Pain in left wrist; M25.522 Pain in left elbow; W10.9XXA Fall (on) (from) unspecified stairs and steps, initial encounter; Y93.9 Activity, unspecified; Y92.9 Unspecified place or not applicable; Y99.8 Other external cause status; Z79.899 Other long term (current) drug therapy
CPT/HCPCS: 25605; 29125; 36415; 70450; 71046; 72125; 73080; 73110; 80048; 84484; 85025; 93005; 99284; J2003

== ENCOUNTER → 2025-04-28 14:35 | Outpatient (BNV) | payer MEDICARE, OTHER, SELFPAY | PROVIDERS: Emergency Provider Internal Medicine; PCP Internal Medicine; Visit Provider Internal Medicine | DX: I44.7 Left bundle-branch block, unspecified (principal); R00.1 Bradycardia, unspecified | CPT/HCPCS: 93010 ==

== ENCOUNTER → 2025-04-28 14:35 | Outpatient (BNV) | payer MEDICARE, OTHER, SELFPAY | PROVIDERS: Emergency Provider Internal Medicine; Visit Provider Radiology Diagnostic Radiology | DX: M43.12 Spondylolisthesis, cervical region (principal); I67.82 Cerebral ischemia; R53.1 Weakness; R22.32 Localized swelling, mass and lump, left upper limb; S52.592A Other fractures of lower end of left radius, initial encounter for closed fracture | CPT/HCPCS: 70450; 71046; 72125; 73080; 73110 ==

== ENCOUNTER 2025-05-13 11:35 | Outpatient (REF) | payer MEDICARE, OTHER, SELFPAY ==
--- OUTSIDE RECORDS SUMMARY | 2024-08-07 10:12 | XMS_ITS | Encounter Summary ---
Author Organization [facility] Address [address] [place] [address] Care Team Providers Care Brazing Machine Operator Helper Name Role Phone Cyndi Rios CRITICAL CARE NURSE PRACTITIONER Primary Care Provide r Encounter Details Date Type Department Care Team (Late st Contact Info) Description 08/07/2024 10:12 AM EDT Hospital Encounter TH HISTORIC ENCOUNTERS EASTERN CONVERSION ONLY Roxy Jimenes MD [address] [place] [phone] Social History Tobacco Use Types Packs/Day Years [...] performance status, she lives in wintertime in [place]. 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 Hernandez Patient moved back to [place] in February 2020, I saw patient on [...] to radiation oncology but patient went to [place] and apparently did not see any radiation oncologist, she continued in [place] on pembrolizumab and came back to me [...] have 2-year of treatment) Patient went to [place] in September 2022, resume her oncological care with Dr. Hernandez, patient unfortunately on follow-up MRI done in [place] showed evidence of some recurrence of her glioma (patient did not resume immunotherapy in [place], appropriately) Patient continue on temozolomide daily and patient's follow-up MRI in April 2023 showed stable disease without any evidence of progression Patient apparently had evidence of progression while she was in [place] in winter 2022-, patient was restarted on [...] lives by herself She lives 7-month in [place] and 5 months in [place] FAMILY HISTORY: Family History Problem Relation Age of Onset ??? Cancer Mother ??? Cancer Sister Family Status Relation Name Status ??? Mother ??? Sister (Not Specified) ??? Father Current Outpatient Medications: ??? amiodarone (PACERONE) 100 MG tablet, Take 1 tablet (100 mg total) by mouth daily., Disp: , Rfl: ??? [facility] [id number] temozolomide 20 mg capsule investigational study drug, Take 75 mg/m2 by mouth 2 (two) times a day. Take 3 capsule by mouth daily, Disp: , Rfl: ??? [facility] [id number] temozolomide 5 mg capsule investigational study drug, [...] female who diagnosed prepandemic with high-grade gliomain [place], initially she had surgery followed by concurrent [...] extremity PLAN: Discussed with Dr. Hernandez in [place] regarding changing dosing of temozolomide Discussed with PCP regarding left lower extremity swelling question DVT Return to office in February of next year (when she come back from [place]) Roxy Jimenes MD documented in this encounter Plan of Treatment Upcoming Encounters Date Type Department Care Team (Late st Contact Info) Description 05/30/2025 11:15 AM EDT Office Visit [facility] Hematology Oncology [address] [place] [phone] Roxy Jimenes MD [address] [place] [address] documented as of this encounter Procedures Procedure [...] on filedocumented in this encounter Care Teams Brazing Machine Operator Helper Relationship Specialty Start Date End Date Cyndi Rios NP [address] [place] [phone] PCP - General 08/07/24 03/20/25 documented as of this encounter
--- OUTSIDE RECORDS SUMMARY | 2025-05-13 12:51 | XMS_ITS | Clinical Summary ---
Author Organization [facility] Address [address] [place] [address] Care Team Providers Care Computer Repair Engineer Name Role Phone GabrielCyndi Huy GARCIA Primary Care Provider [phone] Allergies No known active allergies Medications Medication Sig Dispensed Refills Start Date End Date Status amiodarone (PACERONE) 100 MG tablet Take 1 tablet (100 mg total) by mouth daily. 0 Active PSYCHIATRIC [id number] temozolomide 20 mg capsule investigational study drug Take 75 mg/m2 by mouth 2 (two) times a day. Take 3 capsule by mouth daily 0 Active PSYCHIATRIC [id number] temozolomide 5 mg capsule investigational study drug Take 75 mg/m2 by mouth 2 (two) times a day. Take 2 capsule by mouth daily 0 Active Active Problems No known active problems Family History Medical History Relation Name Comments Cancer Mother Cancer Sister Relation Name Status Comments Father Mother Sister Social History Tobacco Use Types Packs/Day Years Used Date Smoking Tobacco: Never Smokeless Tobacco: Never Alcohol Use Standard Drinks/Week Comments No 0 (1 standard drink = 0.6 oz pur e alcohol) Sex and Gender Information Value Date Recorded Sex Assigned at Not on file Gender Identity Not on file Sexual Orientation Not on file Job Start Date Occupation Industry Not on file Not on file Not on file Last Filed Vital Signs Vital Sign Reading Time Taken Comments Blood Pressure 98/76 08/07/2024 10:22 AM EDT Pulse 57 08/07/2024 10:22 AM EDT Temperature 37.1 C (98.7 F) 08/07/2024 10:22 AM EDT Respiratory Rate - - Oxygen Saturation 100% 08/07/2024 10:22 AM EDT Inhaled Oxygen Concentration - - Weight 49 kg (108 lb) 08/07/2024 10:22 AM EDT Height 160 cm (5' 3 ) 03/08/2024 10:27 AM EDT Body Mass Index 19.13 03/08/2024 10:27 AM EDT Plan of Treatment Health Maintenance Due Date Last Done Comments COVID-19 Vaccine (#1) 1945 Depression Screening 1954 Preventative Health Evaluation 1960 Fall Risk Assessment 2007 Osteoporosis Screening (DEXA Scan) 2007 RSV Adult > 60+ Yrs or (1 - 1-dose 75+ series) 2017 DTap / Tdap / Td (2 - Td or Tdap) 03/22/2023 03/22/2013 Influenza Vaccine (#1) 2025 4, 08/01/2023, 08/11/2022, Additional history exists Pneumococcal Vaccine Completed 10/24/2019, 03/28/2018, 03/22/2013 Shingrix-Zoster Vaccine Completed 10/14/20 20, 09/16/2020, 08/13/2020 Hepatitis B Vaccines Aged Out No long er eligible based on patient's age to complete this topic RSV Ped < 20 months Aged Out No longe r eligible based on patient's age to complete this topic Care Teams Computer Repair Engineer Relationship Specialty Start Date End Date Cyndi Rios NP [address] [facility] [place] [address] PCP - General Nurse Practitioner 08/07/24
== END 2025-05-13 11:36 | disposition home or self-care (01) ==
LOC: HO.MAMMO 11:35
PROVIDERS: PCP Internal Medicine; Visit Provider Internal Medicine
DX: Z12.31 Encounter for screening mammogram for malignant neoplasm of breast (principal)
CPT/HCPCS: 77063; 77067

== ENCOUNTER → 2025-05-13 11:45 | Outpatient (BNV) | payer MEDICARE, OTHER, SELFPAY | PROVIDERS: PCP Internal Medicine; Visit Provider Internal Medicine | DX: Z12.31 Encounter for screening mammogram for malignant neoplasm of breast (principal) | CPT/HCPCS: 77063; 77067 ==

== ENCOUNTER 2025-07-09 08:53 | Outpatient (RCR) | payer MEDICARE, OTHER, SELFPAY ==
--- NOTE | 2025-06-20 14:41 | MHC.OT.EP ---
[facility] Office [address] [facility] [phone] F: [phone] F: [phone] Occupational Therapy Plan of Care Patient Name: Lucia Perez Date of Evaluation: 06/20/25 Diagnosis: L DRF Pain Location: radial side by thumb ; dull ache Pain Score: 1 Pain Scale Used: Numeric (0 - 10) Aggravating Factors: none reported Alleviating Factors: Assessment: Pt is an 84 yr old R hand dominant female who fell down the steps and caught herself using her L hand. She knew it was fractured and went to [facility] where she was diagnosed w/ a DRF and placed in a cast. The cast was removed yesterday. She presents today w/ edema, decreased ROM,, strength, and functional use of her L hand. Pt would benefit from skilled OT therapy to address these deficits and return her to her PLOF. Frequency and Duration: The patient will be seen 2xs a week for 8 weeeks Short Term Goals: Pt will be complaint w/ her HEP Pt will have decrease edema of transmetacarpals (L) to 19 cm Pt will have 30 of wrist extension Structural Fitter Goals: Pt will report using her L hand to carry grocery bags w/ out difficulty Pt will have 70 of supination Pt will oppose the distal tip of her L thumb to the base of her SF w/out difficulty Treatment Plan: Therapeutic Exercise Therapeutic Activity Home Exercise Program Splinting Neuro Re-ed Patient Education Desensitization/Sensory Re-ed Edema Control ADL Training Ultrasound NMES Iontophoresis Paraffin Fluidotherapy MHP Cold Packs Joint Mobilization Soft Tissue Mobilization Kinesiotaping Electronically Signed By: Christy Belcher OTR/L Please Sign and return to therapist. Thank you once again for your referral.
== END 2025-07-10 09:59 | disposition home or self-care (01) ==
LOC: HO.OT 08:53
PROVIDERS: PCP Internal Medicine; Visit Provider Physician Assistant Medical
DX: S52.502D Unspecified fracture of the lower end of left radius, subsequent encounter for closed fracture with routine healing (principal); S52.602D Unspecified fracture of lower end of left ulna, subsequent encounter for closed fracture with routine healing
CPT/HCPCS: 97110; 97140; 97166; 97530; 97535

== ENCOUNTER 2025-07-22 14:05 | Outpatient (AMB) | payer MEDICARE, OTHER, SELFPAY ==
--- OUTSIDE RECORDS SUMMARY | 2024-08-07 10:12 | XMS_ITS | Encounter Summary ---
Author Organization [facility] Address [address] [place] [address] Care Team Providers Care Outer Diameter Technician Name Role Phone Cyndi Rios SECURITY SYSTEM ADMINISTRATOR Primary Care Provide r Encounter Details Date Type Department Care Team (Late st Contact Info) Description 08/07/2024 10:12 AM EDT Hospital Encounter TH HISTORIC ENCOUNTERS EASTERN CONVERSION ONLY Roxy Jimenes MD [address] [place] [phone] Social History Tobacco Use Types Packs/Day Years [...] performance status, she lives in wintertime in [place]. Patient has high-grade glioma diagnosed in [place] few years ago treated with concurrent chemoradiation and has been on temozolomide on and off, last year she had some evidence of progression of disease on MRI in [place], she restarted on temozolomide which she has [...] presented earlier this year to hospital in [place] with severe headache, patient's initial CT scan [...] 1(R132H) positive,p53 overexpressed. Patient was seen by [place] [facility] in [place], patient is started on concurrent chemoradiation (temozolomide) which she finished on 12/20/2019 Patient in January 2020 started on adjuvant temozolomide day 1 to day 5 repeating every 4-week Patient also have high risk non-muscle invasive bladder cancer, patient was seen by urologist in [place] around that time and she cannot be a candidate for BCG, especially because of temozolomide pembrolizumab is approved by FDA for high risk non-muscle invasive bladder cancer, patient is started on pembrolizumab in January [address] Hernandez Patient moved back to [place] in February 2020, I saw patient on [...] to radiation oncology but patient went to [place] and apparently did not see any radiation oncologist, she continued in [place] on pembrolizumab and came back to me [...] have 2-year of treatment) Patient went to [place] in September 2022, resume her oncological care with Dr. Hernandez, patient unfortunately on follow-up MRI done in [place] showed evidence of some recurrence of her glioma (patient did not resume immunotherapy in [place], appropriately) Patient continue on temozolomide daily and patient's follow-up MRI in April 2023 showed stable disease without any evidence of progression Patient apparently had evidence of progression while she was in [place] in winter 2022-, patient was restarted on [...] lives by herself She lives 7-month in [place] and 5 months in [place] FAMILY HISTORY: Family History Problem Relation Age of Onset ??? Cancer Mother ??? Cancer Sister Family Status Relation Name Status ??? Mother ??? Sister (Not Specified) ??? Father Current Outpatient Medications: ??? amiodarone (PACERONE) 100 MG tablet, Take 1 tablet (100 mg total) by mouth daily., Disp: , Rfl: ??? [facility] [id number] temozolomide 20 mg capsule investigational study drug, Take 75 mg/m2 by mouth 2 (two) times a day. Take 3 capsule by mouth daily, Disp: , Rfl: ??? [facility] [id number] temozolomide 5 mg capsule investigational study drug, [...] female who diagnosed prepandemic with high-grade gliomain [place], initially she had surgery followed by concurrent [...] left lower extremity PLAN: Discussed with Dr. Hernandez in [place] regarding changing dosing of temozolomide Discussed with PCP regarding left lower extremity swelling question DVT Return to office in February of next year (when she come back from [place]) Roxy Jimenes MD documented in this encounter Plan of Treatment Upcoming Encounters Date Type Department Care Team (Late st Contact Info) Description 02/24/2026 8:45 AM EDT Office Visit [facility] Hematology Oncology [address] [place] [phone] Roxy Jimenes MD [address] [place] [address] documented as of this encounter Procedures Procedure [...] on filedocumented in this encounter Care Teams Outer Diameter Technician Relationship Specialty Start Date End Date Cyndi Rios NP [address] [place] [phone] PCP - General 08/07/24 03/20/25 documented as of this encounter
--- OUTSIDE RECORDS SUMMARY | 2024-08-07 10:15 | XMS_ITS | Encounter Summary ---
Author Organization [facility] Address [address] [place] [address] Care Team Providers Care Paper Goods Machine Set Up Operator Name Role Phone Cyndi Rios FERRIS WHEEL OPERATOR Primary Care Provide r Encounter Details Date Type Department Care Team (Late Contact Info) Description 08/07/2024 10:15 AM EDT Hospital Encounter TH HISTORIC ENCOUNTERS EASTERN CONVERSION ONLY Roxy Jimenes MD [address] [place] [address] Social History Tobacco Use Types Packs/Day Years [...] 02/24/2026 8:45 AM EDT Office Visit [facility] Hematology Oncology [address] [place] [phone] Roxy Jimenes MD [address] [place] [address] documented as of this encounter Visit Diagnoses Not on filedocumented in this encounter Care Teams Paper Goods Machine Set Up Operator Relationship Specialty Start Date End Date Cyndi Rios NP [address] [place] [phone] PCP - General 08/07/24 03/20/25 documented as of this encounter
--- NOTE | 2025-07-22 14:07 | A.OFFVIS_ITS ---
Vital Signs 07/22/25 14:08 Height 5 ft 2 in Weight 105 lb 13.15 oz BMI 19.4 BP 116/64 Blood Pressure Location Lt brachial Position Sitting Pulse 52 Intake Visit Reasons: ORDER EXPEDITER/Dr. Prince/Hesham Intake Note: New patient dx afib has e commerce director in [place] Law Researcher Required: No Service Desk Director: Service Desk Director Present Accompanied by: Grand Child Allergies No Known Allergies Allergy (Mild, Verified 04/28/25 14:31) Medication List - Last Reconciled 07/22/25 by Pankaj Michaels MD acetaminophen 325 mg PO QID PRN amiodarone 50 mg PO DAILY ascorbic acid (vitamin C) mg PO DAILY bisacodyl (Dulcolax (bisacodyl)) 10 mg OR DAILY PRN calcium carbonate 500 mg PO DAILY docusate sodium 100 mg PO DAILY PRN ferrous sulfate 325 mg PO DAILY magnesium 200 mg PO DAILY mecobalamin (vitamin B12) 1,000 mcg PO DAILY yzlfkdkh-rnz-tqqb-FA-vit K-lut 8 mg iron-400 mcg-50 mcg (Centrum Silver Women) 1 tab PO DAILY ondansetron 4 mg PO BEDTIME temozolomide 10 mg PO BEDTIME temozolomide 60 mg PO BEDTIME HPI Comments Details: Lucia was referred here for management of paroxysmal atrial fibrillation as she is looking for a e commerce director up in [place] when she is here for the 6 months of the year. Otherwise she sees a e commerce director in [place] when she visits there. She has prior history of paroxysmal atrial fibrillation, she says was diagnose about 2 years ago incidentally while listening to a heart. She was subsequently started on amiodarone therapy and maintained on it. She is currently on low-dose amiodarone at 50 mg daily. She says she has never prescribed oral anticoagulant therapy, she does not know the reason for it. She does have prior history of brain tumor of unclear etiology had undergone surgical resection as well as radiation therapy, 30 sessions and currently getting oral chemotherapy for the same. She said this has remained stable. She has never had any bleeding issues. No seizure events. About a year ago she had fallen down with accidental fall and had a hip fracture which was repaired. Since then she has been doing well and currently has no fall issues. She is currently on vitamin B12 and iron therapy for anemia she said was diagnose many many years ago. She does not think that she is anemic anymore. She denies any symptoms of prolonged palpitation irregular heartbeat. Denies any lightheadedn ess, syncope. Denies any exertional chest pain or shortness of breath. [facility] Medical History Paroxysmal atrial fibrillation Brain tumor Surgical History H/O craniotomy Social History Household Members: Children Housing: House Do you presently have visiting nurse or other home services: No Patient Tobacco Use Status: Never used Tobacco Advance Directives Date on File: 06/15/24 Review of Systems Const Denies chills, Denies daytime sleepiness, Denies fatigue, Denies fever(s), Denies frequent falls, Denies poor appetite, Denies snoring, Denies stops breathing during sleep, Denies weakness, Denies weight gain and Denies weight loss Eyes Denies loss of vision ENT Denies dizziness and Denies hearing loss Card Denies chest pain, Denies claudication, Denies leg edema, Denies lightheadedness, Denies palpitations, Denies dyspnea, Denies dyspnea on exertion and Denies orthopnea Resp Denies cough, Denies excessive phlegm production, Denies dyspnea, Denies dyspnea on exertion, Denies snoring and Denies wheezing GI Denies abdominal pain, Denies hematochezia, Denies change in bowel habits, Denies nausea and Denies vomiting Denies urinary frequency and Denies dysuria Musc Denies arthralgias, Denies muscle weakness and Denies numbness Skin/Breast Denies nail changes and Denies rash Neuro Denies Abnormal speech present, Denies dizziness, Denies frequent falls, Denies loss of vision, Denies memory loss, Denies numbness and Denies weakness Psych Denies depression and Denies memory loss Endo Denies fatigue and Denies palpitations Titus/Lymph Reports easy bruising and Reports other (anemia) Aller/Immun Denies wheezing Physical Exam Vital Signs: Last Vital Signs Pulse 52 07/22/25 14:08 BP 116/64 07/22/25 14:08 BMI result Body Mass Index 19.4 Const General: cooperative, comfortable, no acute distress, alert and awake Nutritional Appearance: thin and other (Frail appearing elderly woman) Orientation/consciousness: patient oriented x3 Limitations: ambulation with cane HEENT Head: Yes normocephalic and Yes atraumatic Neck Neck: Yes trachea midline, Yes supple and Yes no JVD Carotids: no bruits Resp Effort & Inspection: normal respiratory effort Auscultation: clear to auscultation bilaterally Cardio Jugular venous distension: no JVD Rate: regular rate Rhythm: regular rhythm Heart sounds: S1 normal heart sound present, S2 normal heart sound present, no click, no gallops, no murmurs and no rubs GI Auscultation: normal bowel sounds Skin General skin exam: no rashes or lesions noted Neuro General: patient oriented x3 and no focal motor deficits Speech: No Abnormal speech present Extrem General: Yes no clubbing, cyanosis or edema Psych Appearance: grossly normal Assessment & Plan Assessment & Plan (1) Paroxysmal atrial fibrillation: Code(s): I48.0 - Paroxysmal atrial fibrillation Category: Medical Plan: Paroxysmal atrial fibrillation without any obvious symptoms for her, on amiodarone therapy been prescribed by e commerce director in [place] currently on very low-dose amiodarone therapy. Risk of toxicity is low although needs to be monitor. Will obtain chest x-ray, liver as well as thyroid profile given that she says she has not had these test in the last year. Will also suggest a basic metabolic profile as well as CBC to assess for safety of use of oral anticoagulant therapy. CHADSVASc score of 3. Should strongly consider oral anticoagulation therapy and this was discussed with her in presence of a grandson. She wants to think about it and discuss with you. I would suggest Eliquis 2.5 mg b.i.d. to her regimen if she has no significant other contra indication. She has never had any bleeding complication. She shows understanding. Will obtain an echocardiogram to assess for LV structure and function as well as biatrial chamber size. Follow up in early summer when she returns back from [place]. Will follow with her. Thank you for allowing me to partake in his care Orders: Orders Basic Metabolic Panel Today I48.0 - Paroxysmal atrial fibrillation TSH reflex Free T4 Today I48.0 - Paroxysmal atrial fibrillation Complete Blood Count no Diff Today I48.0 - Paroxysmal atrial fibrillation Liver Panel Today I48.0 - Paroxysmal atrial fibrillation XR chest 2V Today I48.0 - Paroxysmal atrial fibrillation CA echo transthoracic complete Today I48.0 - Paroxysmal atrial fibrillation Coding Level of Care Code New Pt Level 4 (73500) Complex EM visit Add On G2211 Diagnoses Paroxysmal atrial fibrillation I48.0
[2025-07-22 14:08] VITALS: BP 116/64; PULSE 52; BMI 19.4
--- OUTSIDE RECORDS SUMMARY | 2025-07-22 16:37 | XMS_ITS | Clinical Summary ---
Author Organization [facility] Address [address] [place] [address] Care Team Providers Care Softball Winder Name Role Phone GabrielCyndi Huy GARCIA Primary Care Provider [phone] Allergies No known active allergies Medications Medication Sig Dispensed Refills Start Date End Date Status amiodarone (PACERONE) 100 MG tablet Take 1 tablet (100 mg total) by mouth daily. 0 Active [facility] 0339449621 temozolomide 20 mg capsule investigational study drug Take 75 mg/m2 by mouth 2 (two) times a day. Take 3 capsule by mouth daily 0 Active [facility] 5064709843 temozolomide 5 mg capsule investigational study drug [...] age to complete this topic Care Teams Softball Winder Relationship Specialty Start Date End Date Cyndi Riso NP [address] [facility] [place] [address] PCP - General Nurse Practitioner 08/07/24
--- OUTSIDE RECORDS SUMMARY | 2025-07-22 16:37 | XMS_ITS ---
Author Organization [facility] Care Team Providers Care Hide Mill Worker Name Role Phone Kirt Arnold Unavailable Unavailable Caren Garcia Unavailable Unavailable Mary Joyce Unavailable Allergies and adverse reactions No Known Allergies Care Team Name Role Address Phone Organization Dates Kirt Arnold PCP [address] [place] [address], [facility] (Office): : [facility] 06/19/2024 - 07/16/2024 Caren Garcia [address] [place] [address], [facility] (Office): : [facility] 06/19/2024 - 07/16/2024 Mary Joyce [address] [place] [address], [facility] (Office): : [facility] 06/19/2024 - 07/16/2024 Goals Section Goals Description Status Target Date I plan to discharge back to my home in [place]. Pending outcome of therapy sessions, clinical medical stability progress reviewed weekly. Active 11/10/2024 The resident's advance direc tives are in effect and their wishes will be carried out through the next review. Active Immunizations Immunization Status Vaccine Details Vaccine Code CodeSystem Date Notes Influenza cancelled Influenza, split virus, trivalent, injectable, contains preservative 141 CVX created date: 06/21/2024 consent date: 06/21/2024 PPSV23 (Previous Pneumococcal Polysaccharide) Vaccine completed pneumococcal polysaccharide vaccine, 23 valent 33 CVX created date: 06/21/2024 administer ed date: 10/24/2019 Moderna Covid-19 Booster (SARS-COV-2) vaccine completed SARS-COV-2 (COVID-19) vaccine, mRNA, spike protein, LNP, preservative free, 100 mcg/0.5mL dose or 50 mcg/0.25mL dose lotNumber: [id number] Mfg: [employer]. 207 CVX created date: 06/21/2024 administer ed date: 09/04/2021 Moderna Covid-19 Booster (SARS-COV-2) vaccine completed SARS-COV-2 (COVID-19) vaccine, mRNA, spike protein, LNP, preservative free, 100 mcg/0.5mL dose or 50 mcg/0.25mL dose lotNumber: [id number] Mfg: [employer] Given intramuscularly 207 CVX created date: 06/21/2024 administer ed date: 12/16/2020 tetanus toxoid, unspecified formulation completed tetanus toxoid, unspecified formulation 112 CVX created date: 06/21/2024 administer ed date: 10/17/2010 zoster, unspecified formulation completed zoster vaccine, unspecified formulation 188 CVX created date: 06/21/2024 administer ed date: 09/16/2020 (Influenza) FLUAD - Adjuvanted - High Dose - 65+ completed Influenza, adjuvanted, inactivated, trivalent, injectable, preservative free lotNumber: [id number] expiry: 02/26/2025 Mfg: seqirus Given 0.5 ml Left Deltoid intramuscularly 168 CVX created date: 07/06/2024 consent date: 07/05/2024 administer ed date: 07/05/2024 Educated by IP on 07/05/2024 Mental Status Section Date Assessment Total Score Description 07/16/2024 BIMS 13 cognitively int act CAM 0 No delirium ind icated PHQ-9 00 06/25/2024 BIMS 13 cognitively int act CAM 0 No delirium ind icated PHQ-9 00 Insurance Providers Plan of Treatment Section Interventions Intervention Code Code System Display Name Proposed D ate Problems Problem # Description Date of onset Resolved Date Code CodeSystem Concern Status 1 ENCOUNTER FOR ANTINEOPLASTIC CHEMOTHERAPY 06/19/[address] active 2 HISTORY OF FALLING 06/19/[address] active 3 HYPOTENSION, UNSPECIFIED 06/19/[address] active 4 MALIGNANT NEOPLASM OF BRAIN, UNSPECIFIED 06/19/[address] active 5 MUSCLE WASTING AND ATROPHY, NOT ELSEWHERE CLASSIFIED, MULTIPLE SITES 06/19/[address] active 6 PAROXYSMAL ATRIAL FIBRILLATION 06/19/[address] active 7 UNSPECIFIED ABNORMALITIES OF GAIT AND MOBILITY 06/19/[address] active 8 UNSPECIFIED FRACTURE OF LEFT FEMUR, SUBSEQUENT ENCOUNTER FOR CLOSED FRACTURE WITH ROUTINE HEALING 06/19/[address] active 9 UNSPECIFIED PROTEIN-CALORIE MALNUTRITION 06/19/[address] active Reason for Referral No Reasons for Referral Entered Social History Social History Observation Description Start Date End Date Code Code System Current Smoking Status Tobacco smoking consumption unknown 352730968 SNOMED CT Sex Assigned At Female 1940 45444-2 [facility] Gender Identity Sexual Orientation Vital Signs Code Code System Vitals Name Values and Units Timing Information 52507-3 [facility] Pain Level Value=0.0 07/16/2024 9279-1 [facility] Respiratory Rate Value=18.0 Units=/m in 07/15/2024 8462-4 [facility] Blood Pressure-Diastolic Value=70 Un its=mmHg 07/15/2024 8480-6 [facility] Blood Pressure-Systolic Gwtls=451 Un its=mmHg 07/15/2024 8310-5 INC Body Temperature Value=98.6 Units= F 07/15/2024 8867-4 LOINC Heart rate Value=68.0 Units=/min 51397-3 [facility] O2 % BldC Oximetry Value=97.0 Units= % 07/15/2024 43715-4 [facility] Weight Wmmde=430.0 Units=Lbs 8302-2 [facility] Height Value=60.0 Units=Inches 06/19/2024
--- OUTSIDE RECORDS SUMMARY | 2025-07-22 16:37 | XMS_ITS | Clinical Summary ---
Author Organization [facility] Address [address] [place] [address] Phone Care Team Providers Care Transportation Escort Name Role Phone Aleksander Prince MD Primary Care Provider [phone] Allergies No known active allergies Medications amiodarone (PACERONE) 100 MG tablet Take 0.5 tablets by mouth every morning. 5 Active ondansetron (ZOFRAN-ODT) 4 MG disintegrating tablet Take 4 mg by mouth every 8 (eight) hours as needed for nausea. Active temozolomide (TEMODAR) 5 MG capsule Take by mouth daily Active calcium carbonate-vitamin D3 (CALCIUM 500 + D) 1,250 mg (500 mg elemental)-400 units per tablet daily. Act marylou omega-3 fatty acids-fish oil (FISH OIL) 360-1,200 mg Cap Take by oral route. Active traMADoL (ULTRAM) 50 mg tablet Take 50 mg by mouth every 8 (eight) hours as needed. 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) 06/19/2025 8:50 AM EDT - 06/19/2025 11:59 PM EDT Hospital Encounter [address] [address] Irasema Jackson PA-C Discharge Disposition: Home or Self Care 06/19/2025 8:40 AM EDT Office Visit [facility] Orthopedics & Sports Medicine [address] [place] [phone] Irasema Jackson PA-C Closed fracture distal radius and ulna, left, with routine healing, subsequent encounter (Primary Dx) 06/03/2025 11:00 AM EDT Office Visit [facility] Plastic Surgery [address] [place] [address] Nellie Hooper PA-C Malignant neoplasm of skin of face (Primary Dx); Changing skin lesion 05/20/2025 9:00 AM EDT Office Visit [facility] Orthopedics & Sports Medicine [address] [place] [address] Irasema Jackson PA-C Closed fracture distal radius and ulna, left, with routine healing, subsequent encounter (Primary Dx) 05/20/2025 8:35 AM EDT - 05/20/2025 11:59 PM EDT Hospital Encounter [address] [address] Irasema Jackson PA-C Discharge Disposition: Home or Self Care 05/20/2025 7:56 AM EDT - 05/20/2025 8:34 AM EDT Hospital Encounter [address] [address] Irasema Jackson PA-C Discharge Disposition: Home or Self Care 05/06/2025 9:01 AM EDT - 05/06/2025 11:59 PM EDT Hospital Encounter [address] [address] Irasema Jackson PA-C Discharge Disposition: Home or Self Care 05/06/2025 9:00 AM EDT Office Visit [facility] Orthopedics & Sports Medicine [address] [place] [address] Irasema Jackson PA-C Closed fracture distal radius and ulna, left, with routine healing, subsequent encounter (Primary Dx) 04/29/2025 9:13 AM EDT - 04/29/2025 11:59 PM EDT Hospital Encounter [address] [address] Irasema Jackson PA-C Discharge Disposition: Home or Self Care 04/29/2025 9:00 AM EDT Office Visit [facility] Orthopedics & Sports Medicine [address] [place] [address] Shar Vallecillo PA-C Konefal, Mary Elizabeth, PA-C Fracture of wrist (Primary Dx); Closed fracture of distal radius and ulna, left, initial encounter from Last 3 Months Family History Relation Status Comments Mother Social History Tobacco Use Types Packs/Day Years Used Date Smoking Tobacco: Never Tobacco Cessation:Counseling Given: Not Answered Alcohol Use Standard Drinks/Week Comments Never 0 (1 standard drink = 0.6 oz pur e alcohol) Education Answer Date Recorded Are you interested in more education? Not on miguelito e 04/29/2025 Are you concerned about learning? Not on file 04/29/2025 No 04/29/2025 No 04/29/2025 Digital Access Answer Date Recorded No 04/29/2025 No 04/29/2025 Reliable internet access at home? Not on file 04/29/2025 Device with a working camera? Not on file Comments Unknown Sex and Gender Information Value Date Recorded Sex Assigned at Not on file Legal Sex Female 8:45 AM EDT Gender Identity Not on file Sexual Orientation Not on file Last Filed Vital Signs Vital Sign Reading Time Taken Comments Blood Pressure 103/55 06/03/2025 11:10 AM EDT Pulse 75 06/03/2025 11:10 AM EDT Temperature - - Respiratory Rate - - Oxygen Saturation - - Inhaled Oxygen Concentration - - Weight 47.6 kg (105 lb) 06/03/2025 11:10 AM EDT Height 152.4 cm (5') 06/03/2025 11:10 AM EDT Body Mass Index 20.51 06/03/2025 11:10 AM EDT Plan of Treatment Upcoming Encounters Date Type Department Care Team (Late st Contact Info) Description 08/01/2025 8:00 AM EDT Office Visit [facility] Orthopedics & Sports Medicine [address] [place] [address] Irasema Jackson PA-C [address] [place] [address] Orthopedics & Sports Medicine, [facility] [place] [address] [email or web address] Health Maintenance Due Date Last Done Comments ALT LEVEL (ALANINE AMINOTRANSFERASE) 1940 Adult Td,Tdap Booster 1940 TSH LEVEL 1940 DEPRESSION SCREENING 1954 PNEUMOCOCCAL VACCINES (50+ y ears) (1 of 2 - PCV) 1961 ZOSTER VACCINES (1 of 2) 1961 OSTEOPOROSIS SCREENING INITI AL (ONE-TIME) 2007 RSV VACCINE (1 - 1-dose 75+ series) 2017 INFLUENZA VACCINE (#1) 2025 COVID-19 VACCINE (1 - 2024-2 6 season) 2025 HEPATITIS A VACCINES Aged Out No long er eligible based on patient's age to complete this topic HIB VACCINES Aged Out No longer eligi ble based on patient's age to complete this topic MENINGOCOCCAL VACCINES (ACWY) Aged Out No longer eligible based on patient's age to complete this topic MENINGOCOCCAL VACCINES (B) Aged Out N o longer eligible based on patient's age to complete this topic Medical Devices Not on file Procedures Procedure Name Priority Date/Time Associated Diagnosis Comments ANATOMIC PATHOLOGY Routine 06/27/2025 12 :00 AM EDT XR WRIST 2 VIEWS (LEFT) Routine 06/19/2025 9:17 AM EDT Closed fracture distal radius and ulna, left, with routine healing, subsequent encounter ANATOMIC PATHOLOGY Routine 06/03/2025 12 :00 AM EDT XR WRIST 2 VIEWS (LEFT) Routine 05/20/2025 8:47 AM EDT Closed fracture distal radius and ulna, left, with routine healing, subsequent encounter XR WRIST 2 VIEWS (LEFT) Routine 05/20/2025 8:03 AM EDT Closed fracture distal radius and ulna, left, with routine healing, subsequent encounter XR WRIST 2 VIEWS (LEFT) Routine 05/06/2025 9:17 AM EDT Closed fracture of distal radius and ulna, left, initial encounter XR WRIST 2 VIEWS (LEFT) Routine 04/29/2025 9:26 AM EDT Fracture of wrist from Last 3 Months Results * Anatomic Pathology (06/27/2025 12:00 AM EDT) Only the most recent of2 resultswithin the time period is included. 06/27/2025 06/28/2025 9:0 2 AM EDT Narrative SEE NARRATIVE - 07/01/2025 2:57 [place] [address] Insurance Coordinator: Juan Grimm MD Surgical Pathology Report FINAL PATHOLOGIC DIAGNOSIS: SKIN, LEFT CHEEK, EXCISION: Benign skin with no evidence of residual atypical basaloid proliferation. Dermal fibrosis consistent with prior biopsy ([id number]). Peripheral and deep margins are unremarkable. Electronically Signed Out By Kenzie Wong MD By his/her signature above, the pathologist listed as making the Final Diagnosis certifies that he/she has personally reviewed this case and confirmed or corrected the diagnosis. CLINICAL HISTORY Basal cell carcinoma of left cheek (C44.319) SPECIMENS SUBMITTED: A: SKIN, LEFT CHEEK, EXCISION GROSS DESCRIPTION SKIN, LEFT CHEEK, EXCISION: Received in formalin is a 1.5 x 0.7 cm ellipse of skin excised to a depth of 0.3 cm with surgical dye designated as the 12:00 margin. The skin surface is wrinkled, izquierdo and exhibits a central retracted izquierdo-pink defect measuring 0.4 x 0.3 cm. The margin is inked blue from the 12:00 to 3:00 to 6:00 positions and green from the 6:00 to 9:00 to 12:00 positions. The specimen is serially sectioned and entirely submitted sequentially from the 12:00 to 6:00 tips labeled cassettes A1-A2. Grossed by: YVETTE Oconnor PA([facility]) [id number] 06/28/2025 Grossing Staff: [id number] Patient Name: LUCIA LOPEZ : 1940 (Age: 84) Sex: F Institution: [facility] Location: [facility] Date of Operation: 06/27/2025 Date of Reported: 07/01/2025 14:57 Results To: Hilario Brooke MD, BA Nellie Prince DO Hilario Brooke MD PATHOLOGY ORDERABLES Final Resul t SEE NARRATIVE * XR WRIST 2 VIEWS (LEFT) (06/19/2025 9:17 AM EDT) Narrative SYSTEMGENERATED, DOCUMENTATION - 06/19/2025 9:18 AM EDT This image report has been auto-finalized and has not been read by a Radiologist. Interpretation has been included in the provider encounter note for this date of service. Irasema Jackson PA-C IMG XR UPPER EXTREMI TY Final Result * XR WRIST 2 VIEWS (LEFT) (05/20/2025 8:47 AM EDT) Narrative SYSTEMGENERATED, DOCUMENTATION - 05/20/2025 8:48 AM EDT This image report has been auto-finalized and has not been read by a Radiologist. Interpretation has been included in the provider encounter note for this date of service. Irasema Jackson PA-C IMG XR UPPER EXTREMI TY Final Result * XR WRIST 2 VIEWS (LEFT) (05/20/2025 8:03 AM EDT) Narrative SYSTEMGENERATED, DOCUMENTATION - 05/20/2025 8:03 AM EDT This image report has been auto-finalized and has not been read by a Radiologist. Interpretation has been included in the provider encounter note for this date of service. Irasema Hoodcricket ANDERSON-C IMG XR UPPER EXTREMI TY Final Result * XR WRIST 2 VIEWS (LEFT) (05/06/2025 9:17 AM EDT) Narrative SYSTEMGENERATED, DOCUMENTATION - 05/06/2025 9:17 AM EDT This image report has been auto-finalized and has not been read by a Radiologist. Interpretation has been included in the provider encounter note for this date of service. Irasema Hoodcricket ANDERSON-C IMG XR UPPER EXTREMI TY Final Result * XR WRIST 2 VIEWS (LEFT) (04/29/2025 9:26 AM EDT) Narrative SYSTEMGENERATED, DOCUMENTATION - 04/29/2025 9:26 AM EDT This image report has been auto-finalized and has not been read by a Radiologist. Interpretation has been included in the provider encounter note for this date of service. Irasema Garcia Renetta LANDIS IMG XR UPPER EXTREMI TY Final Result from Last 3 Months Insurance MEDICARE PART A & B [employer] MEDICARE SUPPLEMENT MEDICARE PART A & B [employer] MEDICARE SUPPLEMENT MEDICARE PART A & B [employer] MEDICARE SUPPLEMENT [facility] Address: [place] [id number] MEDICARE PART A & B [employer] MEDICARE SUPPLEMENT [facility] Address[place] [id number] MEDICARE PART A & B FOR LIFE MEDICARE SUPPLEMENT [facility] Address: [address] [address] MEDICARE PART A & B FOR LIFE MEDICARE SUPPLEMENT Care Teams Transportation Escort Relationship Specialty Start Date End Date Aleksander Prince MD [address] [place] [id number] PCP - General Internal Medicine 04/29/25 Additional Source Comments The information contained in this document represents components of the legal health record. It is not the complete legal health record.[facility]
--- OUTSIDE RECORDS SUMMARY | 2025-07-22 16:37 | XMS_ITS | Clinical Summary ---
Author Organization [facility] Address [address] [place] [address] Phone Care Team Providers Care Flight Communications Officer Name Role Phone Aleksander Prince MD Primary Care Provider [phone] Allergies No known active allergies Medications amiodarone (PACERONE) 100 mg tablet Take 1 tablet (100 mg total) by mouth daily. Active temozolomide (TEMODAR) 20 mg capsule [facility] [id number] temozolomide 20 mg capsule investigational study drug-Sig - Route: Take 75 mg/m2 by mouth 2 (two) times a day. Take 3 capsule by mouth daily - Oral Active temozolomide (TEMODAR) 5 mg capsule [facility] [id number] temozolomide 5 mg capsule investigational study drug-Sig - Route: Take 75 mg/m2 by mouth 2 (two) times a day. Take 2 capsule by mouth daily - Oral Active ondansetron ODT (ZOFRAN-ODT) 8 mg disintegrating tablet Dissolve 1 tablet (8 mg total) on top of the tongue every 8 (eight) hours if needed. 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, CMS/HCC V28) (Primary Dx); History of bladder cancer from Last 3 Months Surgical History Surgery Date Site/Laterality Comments HYSTERECTOMY PROCEDURE:HYSTERECTOMY APPENDECTOMY PROCEDURE:APPENDECTOMY TONSILLECTOMY PROCEDURE:TONSILLECTOMY ADENOIDECTOMY PROCEDURE:ADENOIDECTOMY Medical History Medical History Date Comments Bladder cancer (CMS/HCC V24, CMS/HCC V28) DX:Bladder cancer (HCC) Basal cell carcinoma DX:Basal ce ll carcinoma Atrial fibrillation (CMS/HCC V24, CMS/HCC V28) DX:Atrial fibrillation (HCC) GBM (glioblastoma multiforme ) (CMS/HCC V24, CMS/HCC V28) DX:GBM (glioblastoma multifo rme) (HCC) Family History Medical History Relation Name Comments [...] on file Sexual Orientation Not on file Obstetrics History Last Filed Vital Signs Vital Sign Reading Time Taken Comments Blood Pressure 120/53 05/30/2025 11:16 AM EDT Pulse 51 05/30/2025 11:16 AM EDT Temperature 36.6 C (97.9 F) 05/30/2025 11:16 AM EDT Respiratory Rate - - Oxygen Saturation 100% 05/30/2025 11:16 AM EDT Inhaled Oxygen Concentration - - Weight 47.6 kg (105 lb) 05/30/2025 11:16 AM EDT Height 157.5 cm (5' 2 ) 03/28/2025 8:41 AM EDT Body Mass Index 19.2 03/28/2025 8:41 AM EDT Plan of Treatment Upcoming Encounters Date Type Department Care Team (Late st Contact Info) Description 02/24/2026 8:45 AM EDT Office Visit [facility] Hematology Oncology [address] [place] [phone] Roxy Jimenes MD [address] [place] [address] Health Maintenance Due Date Last Done Comments RSV Immunization Adult Patients (1 - 1-dose 75+ series) 2017 Cholesterol Screening (Lipid Panel) 09/18/2022 Falls Risk Assessment 09/18/2022 Medicare Annual Wellness Visit 09/18/2022 Osteoporosis Screening (Bone Density Screening) 09/18/2022 Social Influencers of Health Screening 09/18/2022 DTaP,Tdap,and Td Vaccines (2 - Td or Tdap) 03/22/2023 03/22/2013 Depression Screening 10/17/2024 COVID-19 Vaccine (4 - season) 2025 09/04/2021, 01/21/2021, 12/16/2020 Influenza Vaccine (#1) 2025 4, 08/01/2023, 08/11/2022, Additional history exists Pneumococcal Vaccine: 50+ Years Completed 10/24/2019, 03/28/2018, 03/22/2013 Zoster Vaccines Completed 10/14/2020, 10/2019, 08/13/2020 HIB Vaccines Aged Out No longer eligi ble based on patient's age to complete this topic HPV Vaccines Aged Out No longer eligi ble based on patient's age to complete this topic Hepatitis A Vaccines Aged Out No long er eligible based on patient's age to complete this topic Hepatitis B Vaccines Aged Out No long er eligible based on patient's age to complete this topic IPV Vaccines Aged Out No longer eligi ble based on patient's age to complete this topic MMR Vaccines Aged Out No longer eligi ble based on patient's age to complete this topic Meningococcal ACWY Vaccine Aged Out N o longer eligible based on patient's age to complete this topic Meningococcal B Vaccine Aged Out No l onger eligible based on patient's age to complete this topic RSV Immunization Patients Under 20 months Aged Out No longer eligible based on patient's age to complete this topic Varicella Vaccines Aged Out No longer eligible based on patient's age to complete this topic Insurance MEDICARE [facility] Care Teams Flight Communications Officer Relationship Specialty Start Date End Date Aleksander Prince MD [address] [address] [place] [place] [address] PCP - General Internal Medicine 03/21/25
== END 2025-07-22 14:44 | disposition home or self-care (01) ==
PROVIDERS: PCP Internal Medicine; Visit Provider Internal Medicine Cardiovascular Disease
DX: I48.0 Paroxysmal atrial fibrillation (principal)
CPT/HCPCS: 99204; G2211

== ENCOUNTER 2025-07-22 14:05 | Outpatient (REF) | payer MEDICARE, OTHER, SELFPAY ==
--- NOTE | ~2025-07-22 | XR_ITS ---
EXAMINATION: XR CHEST CLINICAL INFORMATION: I48.0 - Paroxysmal atrial fibrillation COMPARISON: X-ray 04/28/2025 TECHNIQUE: 2 views of the chest were obtained. FINDINGS: The cardiomediastinal silhouette is within normal limits. Stable mild prominence of the pramod. The lungs are well expanded. There is no focal consolidation, edema, or effusion. No pneumothorax. No acute osseous abnormality. Thoracic spine degeneration. XR/XR chest 2V IMPRESSION: No acute pulmonary process. Electronically signed by: David Sunshine MD 07/22/2025 04:05 PM EDT
[2025-07-22 15:32] LABS: Hematocrit 35.5 % (37.0-47.0); Hemoglobin 11.6 g/dl (12.0-16.0); Mean Corpuscular HGB Conc 32.7 g/dl (31.0-35.0); Mean Corpuscular Hemoglobin 32.0 pg (27.0-33.0); Mean Corpuscular Volume 97.8 fL (80.0-98.0); NRBC Abs Auto 0.000 X10*3/uL (0.0-0.012); NRBC Pct Auto 0.0 /100WBC (0.0-0.2); Platelet Count 196 X10*3/uL (160-400); Red Blood Count 3.63 X10*6/uL (4.20-5.50); White Blood Count 4.4 X10*3/uL (4.8-10.8)
[2025-07-22 16:10] LABS: Alanine Aminotransferase 16 U/L (0-31); Albumin Level 4.1 g/dL (3.5-5.0); Alkaline Phosphatase 63 U/L (39-117); Anion Gap 8 (12-20); Aspartate Amino Transferase 21 U/L (5-31); Blood Urea Nitrogen 26 mg/dL (9-16); Calcium 9.2 mg/dL (8.4-10.2); Carbon Dioxide 30 mmol/L (22-29); Chloride 108 mmol/L (96-108); Estimated Glomerular Filt Rate 50; Potassium 4.3 mmol/L (3.3-5.1); Sodium 142 mmol/L (135-145); Total Protein 7.0 g/dL (6.5-8.0)
[2025-07-22 17:01] LABS: Free T4 (Free Thyroxine) 1.10 ng/dL (0.71-1.85)
== END 2025-07-22 14:06 | disposition home or self-care (01) ==
LOC: HO.XRAY 14:05
PROVIDERS: PCP Internal Medicine; Visit Provider Internal Medicine Cardiovascular Disease
DX: I48.0 Paroxysmal atrial fibrillation (principal); Z79.899 Other long term (current) drug therapy
CPT/HCPCS: 36415; 71046; 80048; 80076; 84439; 84443; 85027; 99202

== ENCOUNTER → 2025-07-22 15:07 | Outpatient (BNV) | payer MEDICARE, OTHER, SELFPAY | PROVIDERS: PCP Internal Medicine; Visit Provider Radiology Diagnostic Ultrasound | DX: I48.0 Paroxysmal atrial fibrillation (principal) | CPT/HCPCS: 71046 ==

== ENCOUNTER → 2025-08-20 15:06 | Outpatient (REF) | payer MEDICARE, OTHER, SELFPAY ==
--- OUTSIDE RECORDS SUMMARY | 2024-08-07 09:12 | XMS_ITS | Encounter Summary ---
Author Organization [facility] Address [address] [place] [address] Care Team Providers Care Sound Mixer Name Role Phone Cyndi Rios EQUIPMENT STERILIZER Primary Care Provide r Encounter Details Date Type Department Care Team (Late st Contact Info) Description 08/07/2024 10:12 AM EDT Hospital Encounter TH HISTORIC ENCOUNTERS EASTERN CONVERSION ONLY Roxy Jimenes MD [address] [place] [phone] Social History Tobacco Use Types Packs/Day Years Used Date Smoking Tobacco: Never Smokeless Tobacco: Never Alcohol Use Standard Drinks/Week Comments No 0 (1 standard drink = 0.6 oz pur e alcohol) Comments Unknown Sex and Gender Information Value Date Recorded Sex Assigned at Not on file Legal Sex Female 7:09 PM EST Gender Identity Not on file Sexual Orientation Not on file documented as of this encounter Last Filed Vital Signs Vital Sign Reading Time Taken Comments Blood Pressure 98/76 08/07/2024 10:22 AM EDT Si tting Left arm Pulse 57 08/07/2024 10:22 AM EDT Temperature - - Respiratory Rate - - Oxygen Saturation - - Inhaled Oxygen Concentration - - Weight 49 kg (108 lb) 08/07/2024 10:22 AM EDT Height 160 cm (5' 3 ) 03/08/2024 10:27 AM EDT Body Mass Index 19.13 03/08/2024 10:27 AM EDT documented in this encounter Progress Notes * Roxy Jimenes MD - 08/07/2024 10:15 AM EDT CHIEF COMPLAINT: Follow-up IDENTIFIER:Lucia Perez is a 83 y.o. female. HPI: 83-year-old female, who has very decent performance status, she lives in wintertime in [place]. 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 Patient recently had fracture of the left hip underwent orthopedic intervention, patient was in rehab, apparently at that time patient was on Lovenox but she has not been on any blood thinner and forlast few days patient noticed some left lower extremity swelling ROS: GENERAL: No significant anorexia or weight loss, but not very active because of left hip fracture few weeks ago HEENT: no headache or any visual symptom NECK: No discomfort or lumps. RESPIRATORY: No significant cough or shortness of breath CARDIOVASCULAR: No chest pain. GI: No abdominal discomfort, blood in stools or black stools MUSCULOSKELETAL: Pain at the site of surgery in left hip HEMATOLOGY/LYMPHOLOGY No prolonged bleeding, easy bruisability or swollen nodes EXT: Still discomfort at the left hip, also noticed some swelling in the left lower extremity Oncology History Overview Note Patient has history of non-muscle invasive bladder cancer for many years, had local therapy and resection (used to see Dr. 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 Patient was seen by [place] [facility] in [place], patient is started on concurrent chemoradiation (temozolomide) which she finished on 12/20/2019 Patient in January 2020 started on adjuvant temozolomide day 1 to day 5 repeating every 4-week Patient also have high risk non-muscle invasive bladder cancer, patient was seen by urologist in [place] around that time and she cannot be a candidate for BCG, especially because of temozolomide pembrolizumab is approved by FDA for high risk non-muscle invasive bladder cancer, patient is started on pembrolizumab in [address] Hernandez Patient moved back to [place] in February 2020, I saw patient on March 03, 2020 and restarted on pembrolizumab and recommend to continue temozolomide which she will have total of 8 cycle Patient had an MRI in July 2020 that showed some interval increase in nonenhancing T2/FL AIR hyperintense signal about the resection site now extending into the right frontal and parietal centrum semiovale, I wanted to refer her back to radiation oncology but patient went to [place] and apparently did not see any radiation oncologist, she continued in [place] on pembrolizumab and came back to me in first week of January 2021 Repeat MRI on 02/02/2021 showed s/p right temporal lobe glioblastoma resection with stable resectioncavity and 0.6 cm focal area of nodular enhancement at the inferior lateral base of the resection cavity, T2/FL AIR hyperintensity within the white matter of right frontal, parietal and temporal lobeconsistent with postradiation changes Repeat MRI of the brain in July 2021 showed no new changes, very stable treatment related sequela Patient also had cystoscopy by Dr. Novak reported without any evidence of disease (patient is on immunotherapy for more than 1 year, tentatively will have 2-year of treatment) Patient went to [place] in September 2022, resume her oncological care with Dr. Hernandez, patient unfortunately on follow-up MRI done in [place] showed evidence of some recurrence of her glioma (patient did not resume immunotherapy in [place], appropriately) Patient continue on temozolomide daily and patient's follow-up MRI in April 2023 showed stable disease without any evidence of progression Patient apparently had evidence of progression while she was in [place] in winter 2022-, patient was restarted on temozolomide Patient MRI of the brain on 07/26/2024 showed decrease multifocal enhancements around ependymal surface of the right lateral ventricle with decreased T2 Hyperintensity in the right frontal periventricular and subcortical white matter PAST MEDICAL HISTORY: Atrial fibrillation 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 SOCIAL HISTORY: She never smoked She denies alcohol use and abuse She is single lives by herself She lives 7-month in [place] and 5 months in [place] FAMILY HISTORY: Family History Problem Relation Age of Onset ??? Cancer Mother ??? Cancer Sister Family Status Relation Name Status ??? Mother ??? Sister (Not Specified) ??? Father Current Outpatient Medications: ??? amiodarone (PACERONE) 100 MG tablet, Take 1 tablet (100 mg total) by mouth daily., Disp: , Rfl: ??? [facility] [id number] temozolomide 20 mg capsule investigational study drug, Take 75 mg/m2 by mouth 2 (two) times a day. Take 3 capsule by mouth daily, Disp: , Rfl: ??? [facility] [id number] temozolomide 5 mg capsule investigational study drug, Take 75 mg/m2 by mouth 2 (two) times a day. Take 2 capsule by mouth daily, Disp: , Rfl: You are allergic to the following Date Reviewed: 08/07/2024 No active allergies PHYSICAL EXAM: BP 98/76 (BP Location: Left arm) Pulse 57 Temp 98.7 ??F (37.1 ??C) (Temporal) Wt 49 kg (108 lb) SpO2 100% BMI 19.13 kg/m?? ECOG 1 APPEARANCE: Alert and oriented in no acute distress EYES: nonicteric sclera pink conjunctiva ORAL CAVITY: No erythema or exudates NECK: Neck supple, no significant adenopathy, HEART: S1-S2 irregularly irregular LUNG: clear to auscultation bilaterally except decreased breath sound the bases LYMPH NODES: No palpable superficial adenopathy ABDOMEN: soft, nontender and no organomegaly appreciated EXTREMITIES: +1 edema of left lower extremity without any erythema or any significant tenderness LABS: MRI explaining oncology history above IMPRESSION: SNOMED CT(R) 1. High grade glioma not classifiable by WHO criteria (HCC) MALIGNANT GLIOMA OF BRAIN 2. Carcinoma of bladder (HCC) CARCINOMA OF URINARY BLADDER 3. Edema of left lower extremity EDEMA OF LEFT LOWER LIMB Patient is a pleasant 83-year-old female who diagnosed prepandemic with high-grade gliomain [place], initially she had surgery followed by concurrent chemoradiation and then she did temozolomide in adjuvant setting with good response (patient has MGMT methylated disease), patient also has history of bladder cancer but has been free of any bladder cancer, Dr. Novak recommended she does not need any further urology intervention or workup/follow-up etc. Patient recent MRI showed decrease in multifocal enhancement compared to previous lesion in/around the ependymal surface of the right lateral ventricle with decreased T2 hyperintensity in the right frontal periventricular and subcortical white matter. I told patient this could be because of her jose zolomide. I told patient since she had some side effect of temozolomide I would try to cut down to 5 days and I month or discontinue and reassess but I will defer this decision to her oncologist and [place]. Patient had left hip fracture and at that time she was on Lovenox when she was in rehab but patienthas not been very active but last few days patient noticed some swelling of left lower extremity, Larry concerned about deep venous thrombosis, patient will be seeing primary care physician this afternoon, I would recommend that should consider Doppler of left lower extremity PLAN: Discussed with Dr. Hrenandez in [place] regarding changing dosing of temozolomide Discussed with PCP regarding left lower extremity swelling question DVT Return to office in February of next year (when she come back from [place]) Roxy Jimenes MD documented in this encounter Plan of Treatment Upcoming Encounters Date Type Department Care Team (Late st Contact Info) Description 02/24/2026 8:45 AM EDT Office Visit [facility] Hematology Oncology [address] [place] [phone] Roxy Jimenes MD [address] [place] [address] documented as of this encounter Procedures Procedure Name Priority Date/Time Associated Diagnosis Comments ..MISCELLANEOUS REFERENCE LAB TEST 08/07/2024 ..MISCELLANEOUS REFERENCE LAB TEST 08/07/2024 documented in this encounter Results * Miscellaneous reference lab test (08/07/2024) us Provider Onbase MD LAB BLOOD ORDERABLES Final Re sult * Miscellaneous reference lab test (08/07/2024) us Provider Onbase MD LAB BLOOD ORDERABLES Final Re sult documented in this encounter Visit Diagnoses Not on filedocumented in this encounter Care Teams Sound Mixer Relationship Specialty Start Date End Date Cyndi Rios NP [address] [place] [phone] PCP - General 08/07/24 03/20/25 documented as of this encounter
--- OUTSIDE RECORDS SUMMARY | 2024-08-07 09:15 | XMS_ITS | Encounter Summary ---
Author Organization [facility] Address [address] [place] [address] Care Team Providers Care Trophy Assembler Name Role Phone Cyndi Rios OCCUPATIONAL THERAPY CO DIRECTOR Primary Care Provide r Encounter Details Date Type Department Care Team (Late Contact Info) Description 08/07/2024 10:15 AM EDT Hospital Encounter TH HISTORIC ENCOUNTERS EASTERN CONVERSION ONLY Roxy Jimenes MD [address] [place] [address] Social History Tobacco Use Types Packs/Day Years [...] on file documented as of this encounter Plan of Treatment Upcoming Encounters Date Type Department Care Team (Late Contact Info) Description 02/24/2026 8:45 AM EDT Office Visit [facility] Hematology Oncology [address] [place] [phone] Roxy Jimenes MD [address] [place] [address] documented as of this encounter Visit Diagnoses Not on filedocumented in this encounter Care Teams Trophy Assembler Relationship Specialty Start Date End Date Cyndi Rios NP [address] [place] [phone] PCP - General 08/07/24 03/20/25 documented as of this encounter
--- NOTE | 2025-08-20 15:09 | CA_ITS ---
Transthoracic Echocardiogram Patient (Last, First, Middle): Lucia Perez, Gender: F Date of : 1940 Age: 84 Procedure Date: 08/20/2025 Procedure Type: Transthoracic Echocardiogram Location: OP Height: 157.48 cm Weight: 49.9 kg BSA: 1.48 m2 Heart Rate: bpm BP: 98 / 60 mmHg Quilting Machine Operator: TO Referring MD: Pankaj Michaels MD Symptoms: I48.0 - Paroxysmal atrial fibrillation Study Quality: Adequate ECG Rhythm: Sinus Conclusions: - The left ventricular systolic function is normal. The calculated ejection fraction is 67% by biplane method. - No obvious valvular pathology seen on this study. Findings Left Ventricle Normal left ventricular cavity size. There is normal left ventricular wall thickness. The left ventricular systolic function is normal. The calculated ejection fraction is 67% by biplane method. There is no evidence of regional wall motion abnormalities. Diastolic function is normal for age. Right Ventricle Normal right ventricular cavity size and systolic function. Atria Both atria are normal in size. Aortic Valve There is a normal trileaflet aortic valve. There is mild calcification of the aortic valve. There is no aortic valve stenosis. There is no aortic valve regurgitation. Mitral Valve The mitral valve appears normal. There is trace mitral valve regurgitation. There is no mitral valve stenosis. Pulmonic Valve The pulmonic valve is likely normal. Tricuspid Valve There is trace tricuspid valve regurgitation. There is no evidence of pulmonary hypertension. Great Vessels The asc aorta is normal in size. Small plaque is seen in the sino tubular ridge. Venous The inferior vena cava is normal in size and collapses greater than 50% with inspiration. Pericardium/Pleural There is no evidence of pericardial effusion. Prior Study Comparison No prior study available for comparison. Recommendations, Care & Conclusions No obvious valvular pathology seen on this study. Measurements 2D Linear Measurements IVSd: 0.92 0.6-0.9/0.6-1.0 cm LVIDd: 3.83 3.9-5.3/4.2-5.9 cm LVIDd Index: 2.59 2.4-3.2/2.2-3.1 cm/m2 LVIDs: 2.72 2.0-3.6 cm LVPWd: 0.83 0.7-1.1 cm LA Diam: 3.80 2.7-3.8/3.0-4.0 cm LAIDs Index: 2.57 1.5-2.3 cm/m2 LV Mass: 122.26 67-162/88-224 g LV Mass Index: 82.61 43-95/49-115 g/m2 LVOT Diam: 1.90 3.0+(-)1.3 cm 2D Systolic Function EF 4C: 65.60 >55% EF 2C: 66.30 >55% EF BiP: 67.20 >55% Mitral Valve MV Pk E: 0.65 MV PK A: 0.78 MV Decel Time: 241.00 E/A: 0.80 E'Lateral: 6.09 E'Medial: 4.35 E/E' Med: 15.00 E/E' Lat: 10.70 PHT: 70.00 MVA PHT: 3.14 Decel [place]: 2.71 Aortic Valve AoV Pk Eulalio: 1.23 AoV Mn Eulalio: 0.79 AoV VTI: 0.29 AoV Pk Grad: 6.00 Aov Mn Grad: 3.00 SURAJ Cont.VTI: 1.84 LVOT LVOT Pk Eulalio: 0.80 LVOT Mn Eulalio: 0.55 LVOT VTI: 0.19 LVOT Pk Grad: 3.00 LVOT Mn Grad: 1.00 LVOT Diam: 1.90 LVOT Area: 2.84 Diastolic Function MV Pk E: 0.65 MV Pk A: 0.78 E/A: 0.80 E'Medial: 4.35 E/E' Med: 15.00 E' Laterial: 6.09 E/E' Lat: 10.70 Right Ventricle TAPSE (mm): 27.20 TVS' Eulalio: 12.90 Tricuspid Valve TR Pk Eulalio: 2.44 TR Pk Grad: 24.00 RA Press: 3.00 RVSP: 27.00 Great Vessels Aorta Sinus of Valsalva: 3.01 2.0-3.5 cm Ao Asc: 3.00 2.1-3.4 cm Updated in Other Vendor System with Status of Final Pérez Armendariz MD electronically signed on 08/21/2025 9:09:45 AM with status of Final
--- OUTSIDE RECORDS SUMMARY | 2025-08-20 18:04 | XMS_ITS | Clinical Summary ---
Author Organization [facility] Address [address] [place] [address] Phone Care Team Providers Care Division Controller Name Role Phone Aleksander Prince MD Primary Care Provider [phone] Allergies No known active allergies Medications amiodarone (PACERONE) 100 mg tablet Take 1 tablet (100 mg total) by mouth daily. Active temozolomide (TEMODAR) 20 mg capsule [facility] [id number] temozolomide 20 mg capsule investigational study drug-Sig - Route: Take 75 mg/m2 by mouth 2 (two) times a day. Take 3 capsule by mouth daily - Oral Active temozolomide (TEMODAR) 5 mg capsule [facility] [id number] temozolomide 5 mg capsule investigational study drug-Sig [...] Description 05/30/2025 11:15 AM EDT Office Visit [facility] Hematology Oncology [address] [place] [address] Roxy Jimenes MD High grade [...] Description 02/24/2026 8:45 AM EDT Office Visit [facility] Hematology Oncology [address] [place] [phone] Roxy Jimenes MD [address] [place] [address] Health Maintenance Due Date Last Done Comments [...] age to complete this topic Insurance MEDICARE [facility] Care Teams Division Controller Relationship Specialty Start Date End Date Aleksander Prince MD [address] [address] [facility] [place] [address] PCP - General Internal Medicine 03/21/25
--- OUTSIDE RECORDS SUMMARY | 2025-08-20 18:04 | XMS_ITS | Clinical Summary ---
Author Organization [facility] Address [address] [place] [address] Care Team Providers Care Electric Solderer Name Role Phone GabrielCyndi Huy GARCIA Primary Care Provider [phone] Allergies No known active allergies Medications Medication Sig Dispensed Refills Start Date End Date Status amiodarone (PACERONE) 100 MG tablet Take 1 tablet (100 mg total) by mouth daily. 0 Active [facility] [id number] temozolomide 20 mg capsule investigational study drug Take 75 mg/m2 by mouth 2 (two) times a day. Take 3 capsule by mouth daily 0 Active [facility] [id number] temozolomide 5 mg capsule investigational study drug [...] Date Last Done Comments COVID-19 Vaccine (#1) 05/07/1941 Depression Screening 1954 Preventative Health Evaluation 1960 [...] age to complete this topic Care Teams Electric Solderer Relationship Specialty Start Date End Date Cyndi Rios NP [address] [facility] [place] [address] PCP - General Nurse Practitioner 08/07/24
--- OUTSIDE RECORDS SUMMARY | 2025-08-20 18:04 | XMS_ITS | Clinical Summary ---
Author Organization [facility] Address [address] [place] [address] Phone Care Team Providers Care Administrative Volunteer Name Role Phone Aleksander Prince MD Primary Care Provider Allergies No known active allergies Medications amiodarone (PACERONE) 100 MG tablet Take 0.5 tablets by mouth every morning. Active ondansetron (ZOFRAN-ODT) 4 MG disintegrating tablet [...] Type Department Care Team Description 06/28/2025 Telephone [facility] Plastic Surgery [address] [place] [address] Laure Schofield CMA Post-op 06/27/2025 3:00 PM EDT Procedure visit [facility] Plastic Surgery [address] [place] [address] Hilario Brooke MD Basal cell carcinoma of left cheek (Primary Dx) 06/19/2025 8:50 AM EDT - 06/19/2025 11:59 PM EDT Hospital Encounter [address] [address] Irasema Jackson PA-C Discharge Disposition: Home or Self Care 06/19/2025 8:40 AM EDT Office Visit [facility] [address] [place] [id number] Iarsema Jackson PA-C Closed fracture distal radius and ulna, left, with routine healing, subsequent encounter (Primary Dx) 06/03/2025 11:00 AM EDT Office Visit [facility] Plastic Surgery [address] [place] [phone] Nellie Hooper PA-C Malignant neoplasm of skin of face (Primary Dx); Changing skin lesion 05/20/2025 9:00 AM EDT Office Visit [facility] [address] [place] [phone] Irasema Jackson PA-C Closed fracture distal radius and ulna, left, with routine healing, subsequent encounter (Primary Dx) 05/20/2025 8:35 AM EDT - 05/20/2025 11:59 PM EDT Hospital Encounter [address] [address] Irasema Jackson PA-C Discharge Disposition: Home or Self Care 05/20/2025 7:56 AM EDT - 05/20/2025 8:34 AM EDT Hospital Encounter [address] [address] Irasema Jackson PA-C Discharge Disposition: Home or Self Care from Last 3 Months Family History Relation [...] 06/03/2025 11:10 AM EDT Plan of Treatment Health Maintenance [...] 2017 INFLUENZA VACCINE (#1) 2025 COVID-19 VACCINE ( - 2024-2 6 season) 2025 HEPATITIS A [...] ulna, left, with routine healing, subsequent encounter from Last 3 Months Results * Anatomic Pathology (Non-MGB) (06/27/2025 12:00 AM EDT) Only the most recent of2 resultswithin the time period is included. Report [address] [address] Roaster Operator: Juan Grimm MD Surgical Pathology Report FINAL PATHOLOGIC DIAGNOSIS: SKIN, LEFT CHEEK, EXCISION: Benign skin with no evidence of residual atypical basaloid proliferation. Dermal fibrosis consistent with prior biopsy ([id number]). Peripheral and deep margins are unremarkable. Electronically [...] labeled cassettes A1-A2. Grossed by: YVETTE Oconnor PA(ASCP) [id number] 06/28/2025 Grossing Staff: [id number] Patient Name: LUCIA PEREZ : 1940 (Age: 84) Sex: F Institution: [facility] Location: [facility] Date of Operation: 06/27/2025 Date of Reported: 07/01/2025 14:57 Results To: Hilario Brooke MD, FILIPE Prince [facility] Clinical History Basal cell carcinoma of left cheek (C44.319) [facility] Final Diagnosis SKIN, LEFT CHEEK, EXCISION: Benign skin with no evidence of residual atypical basaloid proliferation. Dermal fibrosis consistent with prior biopsy ([id number]). Peripheral and deep margins are unremarkable. [facility] Gross Description SKIN, LEFT CHEEK, EXCISION: Received in formalin is a 1.5 x 0.7 cm ellipse of skin excised to a depth of 0.3 cm with surgical dye designated as the 12:00 margin. The skin surface is wrinkled, izquierdo and exhibits a central retracted iqzuierdo-pink defect measuring 0.4 x 0.3 cm. The margin is inked blue from the 12:00 to 3:00 to 6:00 positions and green from the 6:00 to 9:00 to 12:00 positions. The specimen is serially sectioned and entirely submitted sequentially from the 12:00 to 6:00 tips labeled cassettes A1-A2. Grossed by: YVETTE Oconnor PA(ASCP) [facility] Conversion Type (Conversion Source) 06/27/2025 06/28/2025 9:02 AM EDT us Hilario Brooke MD LAB PATHOLOGY ORDERABLES Edited Result - Final [address] [address] * XR WRIST 2 VIEWS (LEFT) (06/19/2025 9:17 AM EDT) Narrative SYSTEMGENERATED, DOCUMENTATION - 06/19/2025 9:18 AM EDT This image report has been auto-finalized and has not been read by a Radiologist. Interpretation has been included in the provider encounter note for this date of service. Irasema Garcia Renetta ANDERSON-Jesika IMG XR UPPER EXTREMI TY Final Result [...] Months Insurance MEDICARE PART A & B FOR LIFE MEDICARE SUPPLEMENT MEDICARE PART A & B FOR LIFE MEDICARE SUPPLEMENT MEDICARE PART A & B [facility] FOR LIFE MEDICARE SUPPLEMENT [facility] Address: [address] [address] MEDICARE PART A & B [facility] FOR LIFE MEDICARE SUPPLEMENT MEDICARE PART A & B [employer] FOR LIFE MEDICARE SUPPLEMENT [facility] Address: [address] [address] MEDICARE PART A & B FOR LIFE MEDICARE SUPPLEMENT Care Teams Administrative Volunteer Relationship Specialty Start Date End Date Aleksander Prince MD [address] [place] [id number] PCP - General Internal Medicine 04/29/25 Additional Source Comments The information contained in this document represents components of the legal health record. It is not the complete legal health record.[facility]
== END ==
LOC: HO.CARD 15:06
PROVIDERS: PCP Internal Medicine; Visit Provider Internal Medicine Cardiovascular Disease
DX: I48.0 Paroxysmal atrial fibrillation (principal)
CPT/HCPCS: 93306

== ENCOUNTER → 2025-08-20 15:09 | Outpatient (BNV) | payer MEDICARE, OTHER, SELFPAY | PROVIDERS: PCP Internal Medicine; Visit Provider Internal Medicine | DX: I48.0 Paroxysmal atrial fibrillation (principal); I35.8 Other nonrheumatic aortic valve disorders | CPT/HCPCS: 93306 ==